=== PATIENT | female | born 1990 | race Caucasian/White ===

== ENCOUNTER 2017-04-25 14:08 | Inpatient (IN) | payer MEDICAID, SELFPAY ==
[2017-04-25 14:26] VITALS: PULSE 94; RESP 18; BMI 28.2
[2017-04-25 14:40] VITALS: BP 118/64; PULSE 94; RESP 16; TEMP 36.2; O2SAT 97
[2017-04-25 14:49] VITALS: BP 118/64; PULSE 94; RESP 16; TEMP 36.2
[2017-04-25] MEDS: Methocarbamol 750 MG Tablet PO (15:28)
[2017-04-25] MEDS: hydrOXYzine PAM 25 MG Capsule 50 MG PO (15:28)
[2017-04-25] MEDS: Buprenorphine HCl 2 MG TAB.SUBL SL ×2 (15:29→22:33)
[2017-04-25 15:40] LABS: Absolute Lymphocyte Count 3.01 X10^3/ul (0.83-4.51); Basophil# 0.01 X10^3/uL; Basophil% 0.1 % (0-1); Eosinophil# 0.18 X10^3/uL; Hematocrit 43.6 % (37-47); Hemoglobin 14.6 g/dl (12.0-15.0); Lymphocyte # 3.01 X10^3/ul (4.0); Lymphocyte % 34.2 % (19-41); Mean Corp Hgb Conc 33.5 g/gl (32-36); Mean Corpuscular Hgb 29.4 pg (27.0-32.0); Mean Corpuscular Volume 87.7 fL (81-99); Mean Platelet Vol. 9.1 fl (6.2-12.0); Monocyte# 0.61 X10^3/uL; Monocyte% 6.9 % (0-10); Neutrophil # 4.97 X10^3/uL (2.7-7.7); Neutrophil % 56.7 % (47-70); Platelet Count 239 K/mm3 (150-450); RBC Distribution Width CV 13.9 % (11.6-14.6); RBC Distribution Width SD 44.6 fl (35.1-43.9); Red Blood Count 4.97 M/mm3 (4.2-5.4); White Blood Count 8.8 K/mm3 (4.4-11.0)
[2017-04-25 15:43] LABS: POSITIVE COUNT NO; POSITIVE DIFFERENTIAL NO; POSITIVE MORPHOLOGY NO
--- NOTE | 2017-04-25 15:49 | PCM.HP.STD ---
<Anila Kimbrough - Last Filed: 04/25/17 16:04> Problem List (1) Polysubstance abuse Status: Resolved Comment: also uses suboxone and crack intermittently (2) Anxiety and depression Status: Chronic (3) Acute opioid withdrawal Status: Acute (4) Opioid dependence Status: Chronic (5) Tobacco dependence Status: Chronic (6) Asthma Status: Chronic (7) Recurrent UTI Status: Chronic History of Present Illness Date of Admission: 04/25/17 Chief Complaint: Opioid withdrawal The patient is a 26 year old F who presents through [facility] program for acute opioid withdrawal. She admits to using approximately 60 mg of Percocet daily via snorting. She has used Percocet intermittently for about 10 years. She last snorted Percocet last evening, 04/24/2017 around 5 PM and used 90 mg. She has been in detox multiple times, most recently in December 2016 at [facility] where she was referred through [facility]. She has a history of cocaine use intermittently but denies current use or other substance use. She denies alcohol use. She is a current pack per day smoker. Her other past medical history includes asthma, depression, anxiety, recurrent UTIs. She currently complains of dysuria and urinary frequency and suspect she has a UTI. She currently complains of nausea, thirst and dry mouth, restlessness, tremors. 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 Denies: Chills, Fever, Weight Change HEENT: Denies: Head Aches, Sinus Congestion, Sinus Drainage Cardiovascular: Denies: Chest Pain, Palpitations Respiratory: Denies: Cough, Shortness of breath at rest, Sputum production Gastrointestinal: Reports: Diarrhea, Nausea. Denies: Abdominal Pain, Vomiting Genitourinary: Denies: Dysuria Musculoskeletal: Reports: Joint Pain. Denies: Joint Tenderness Skin: Denies: Rash, Wounds Neurological: Denies: Numbness, Tingling, Focal weakness Psychiatric: Reports: Anxiety, Depression Hematologic/ Lymphatic: Denies: Easy Bruising, Easy Bleeding VTE Information - Inpt Only VTE Present on Admission: No VTE Mechan Device Prophylaxis: None VTE Pharm Prophylaxis ordered?: No Reason prophylaxis not ordered:: Treatment Not Indicated - Physical Exam General: Alert, Oriented x3, Cooperative, No apparent distress HEENT: Atraumatic, PERRLA, EOMI, Normocephalic Neck: Supple, No JVD, Negative Carotid Bruits Lungs: Clear to auscultation, Normal air movement Cardiovascular: Regular rate, No murmurs Abdomen: Bowel Sounds Present, Soft, Non Tender, Non-Distended Extremities: No clubbing, No cyanosis, No edema, Capillary Refill Less than 3 Seconds Skin: No rashes, No breakdown Musculoskeletal: No Tenderness to Palpation of Joints or Extremities Neurological: Cranial nerves II-XII grossly intact, Neuro grossly intact Psych/Mental Status: Normal Affect, Appropriate Vital Signs Temp Pulse Resp BP Pulse Ox 97.2 F L 94 16 118/64 97 04/25/17 14:49 04/25/17 14:49 04/25/17 14:49 04/25/17 14:49 04/25/17 14:40 Oxygen Delivery Method Room Air Weight: 79.379 kg Body Mass Index (BMI) 28.2 Laboratory Tests Past 24 Hrs 04/25/17 04/25/17 04/25/17 15:30 15:30 15:30 WBC 8.8 RBC 4.97 Hgb 14.6 Hct 43.6 MCV 87.7 MCH 29.4 MCHC 33.5 RDW 13.9 RDW Differential 44.6 H Plt Count 239 MPV 9.1 Immature Gran % (Auto) 0.100 Neut % (Auto) 56.7 Lymph % (Auto) 34.2 [place] % (Auto) 6.9 Eos % (Auto) 2.0 Baso % (Auto) 0.1 Absolute Neuts (auto) 5.0 Absolute Lymphs (auto) 3.01 Total Counted Not Reportable Sodium Pending Potassium Pending Chloride Pending Carbon Dioxide Pending Anion Gap Pending BUN Pending Creatinine Pending Est GFR (MDRD) Af Amer Pending Est GFR (MDRD) Non-Af Pending BUN/Creatinine Ratio Pending Glucose Pending Calcium Pending Lipase Pending Serum , Qual Ethyl Alcohol Pending 04/25/17 15:30 WBC RBC Hgb Hct MCV MCH MCHC RDW RDW Differential Plt Count MPV Immature Gran % (Auto) Neut % (Auto) Lymph % (Auto) [place] % (Auto) Eos % (Auto) Baso % (Auto) Absolute Neuts (auto) Absolute Lymphs (auto) Total Counted Sodium Potassium Chloride Carbon Dioxide Anion Gap BUN Creatinine Est GFR (MDRD) Af Amer Est GFR (MDRD) Non-Af BUN/Creatinine Ratio Glucose Calcium Lipase Serum , Qual Pending Ethyl Alcohol Assessment/Plan 1. Acute opioid withdrawal on chronic opioid dependence-history of multiple inpatient detox treatment. Medical stabilization per protocol. Patient currently has symptoms of nausea, thirst, diarrhea, restlessness, tremor. Zofran as needed for nausea. Urine drug screen pending. 2. Tobacco dependence-encourage smoking cessation. Requesting nicotine replacement patch. 3. History of recurrent UTIs-complaints of dysuria and urinary frequency. Send urine for UA and culture. 4. Anxiety/depression-not on home regimen. 5. Asthma-does not require inhaler. DVT prophylaxis-not indicated. This patient was seen by RIDDHI Demarco under the supervision of Dr. Hollis. <Jordon Hollis E - Last Filed: 04/25/17 20:31> History of Present Illness The patient is a 26 year old F [] Past Medical History Allergies No Known Allergies Allergy (Verified 12/27/16 15:01) - Physical Exam Vital Signs Temp Pulse Resp BP Pulse Ox 98.5 F 98 16 120/62 97 04/25/17 18:00 04/25/17 18:00 04/25/17 18:00 04/25/17 18:00 04/25/17 14:40 Oxygen Delivery Method Room Air Weight: 175 lb 0.012 oz Body Mass Index (BMI) 28.2 Intake and Output for Last 24 Hours 04/23/17 04/24/17 04/25/17 23:59 23:59 23:59 Intake Total 700 / 700 Balance 700 / 700 Laboratory Tests Past 24 Hrs 04/25/17 04/25/17 04/25/17 15:30 15:30 15:30 WBC 8.8 RBC 4.97 Hgb 14.6 Hct 43.6 MCV 87.7 MCH 29.4 MCHC 33.5 RDW 13.9 RDW Differential 44.6 H Plt Count 239 MPV 9.1 Immature Gran % (Auto) 0.100 Neut % (Auto) 56.7 Lymph % (Auto) 34.2 [place] % (Auto) 6.9 Eos % (Auto) 2.0 Baso % (Auto) 0.1 Absolute Neuts (auto) 5.0 Absolute Lymphs (auto) 3.01 Total Counted Not Reportable Sodium 140 Potassium 3.7 Chloride 106 Carbon Dioxide 29.0 Anion Gap 5 BUN 11 Creatinine 0.80 Estim Creat Clear Calc 100.63 Est GFR (MDRD) Af Amer 112 Est GFR (MDRD) Non-Af 93 BUN/Creatinine Ratio 13.8 Glucose 106 Calcium 8.2 L Lipase 106 Serum , Qual Ethyl Alcohol < 3.0 04/25/17 15:30 WBC RBC Hgb Hct MCV MCH MCHC RDW RDW Differential Plt Count MPV Immature Gran % (Auto) Neut % (Auto) Lymph % (Auto) Wil[place] % (Auto) Eos % (Auto) Baso % (Auto) Absolute Neuts (auto) Absolute Lymphs (auto) Total Counted Sodium Potassium Chloride Carbon Dioxide Anion Gap BUN Creatinine Estim Creat Clear Calc Est GFR (MDRD) Af Amer Est GFR (MDRD) Non-Af BUN/Creatinine Ratio Glucose Calcium Lipase Serum , Qual NEGATIVE Ethyl Alcohol Assessment/Plan Hospitalist note: I am seeing this patient in conjunction with Anila Kimbrough. I independently seen and examined the patient. History and physical and laboratory data reviewed and I agree with above treatment plan. Patient was admitted because of acute opioid withdrawal for medical stabilization. She has been using Percocet via snorting for the last 10 years. She complained of nausea, dry mouth as well as tremors and restlessness. She underwent detox program multiple times most recent was in December, at this hospital. At this time, she denied any concurrent use of other street drugs or substance abuse. She denied alcohol abuse or drinking. She is everyday smoker. - Physical Exam General: Alert, Oriented x3, Cooperative, No apparent distress. HEENT: Atraumatic, PERRLA, EOMI. Neck: Supple, No JVD, Negative Carotid Bruits, Trachea Midline, Thyroid Normal. Lungs: Clear to auscultation, Normal air movement, No rhonchi, No wheeze, No rales. Cardiovascular: Regular rate, Regular Rhythm, Normal S1, Normal S2, PMI Normal. Abdomen: Bowel Sounds Present, Soft, Non Tender, Non-Distended, No Hepato-splenomegaly. Extremities: No clubbing, No cyanosis, No edema Skin: No rashes, No breakdown Neurological: Neuro grossly intact Vital Signs are stable. Assessment and plan: #1 acute opioid withdrawal: Routine blood work reviewed, was unremarkable. test was negative. Lipase was negative. Blood alcohol level less than 3. Urine drug screen and urine analysis ordered. Plan: Initiate [facility] protocol with tapering course of Subutex, as needed Catapres, Bentyl, Vistaril, methocarbamol, Seroquel and Mirapex. #2 asthma: Stable, pulse ox is normal on room air. #3 anxiety/depression: She is not on any medication. #4 tobacco abuse: NicoDerm patch. #5 DVT prophylaxis: Low risk patient, not indicated. This note was generated with [email or web address] dictation software. It may contain incorrect words, spelling, and punctuation that were not noted in checking the note before signing. Code Visit Inpatient E&M: 56483 Init Hosp L2
--- NOTE | 2017-04-25 15:59 | HP.PCM_ITS ---
<Anila Kimbrough - Last Filed: 04/25/17 16:04> Problem List (1) Polysubstance abuse Status: Resolved Comment: also uses suboxone and crack intermittently (2) Anxiety and depression Status: Chronic (3) Acute opioid withdrawal Status: Acute (4) Opioid dependence Status: Chronic (5) Tobacco dependence Status: Chronic (6) Asthma Status: Chronic (7) Recurrent UTI Status: Chronic History of Present Illness Date of Admission: 04/25/17 Chief Complaint: Opioid withdrawal The patient is a 26 year old F who presents through [facility] program for acute opioid withdrawal. She admits to using approximately 60 mg of Percocet daily via snorting. She has used Percocet intermittently for about 10 years. She last snorted Percocet last evening, 04/24/2017 around 5 PM and used 90 mg. She has been in detox multiple times, most recently in December 2016 at [facility] where she was referred through [facility]. She has a history of cocaine use intermittently but denies current use or other substance use. She denies alcohol use. She is a current pack per day smoker. Her other past medical history includes asthma, depression, anxiety, recurrent UTIs. She currently complains of dysuria and urinary frequency and suspect she has a UTI. She currently complains of nausea, thirst and dry mouth, restlessness, tremors. 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 Denies: Chills, Fever, Weight Change HEENT: Denies: Head Aches, Sinus Congestion, Sinus Drainage Cardiovascular: Denies: Chest Pain, Palpitations Respiratory: Denies: Cough, Shortness of breath at rest, Sputum production Gastrointestinal: Reports: Diarrhea, Nausea. Denies: Abdominal Pain, Vomiting Genitourinary: Denies: Dysuria Musculoskeletal: Reports: Joint Pain. Denies: Joint Tenderness Skin: Denies: Rash, Wounds Neurological: Denies: Numbness, Tingling, Focal weakness Psychiatric: Reports: Anxiety, Depression Hematologic/ Lymphatic: Denies: Easy Bruising, Easy Bleeding VTE Information - Inpt Only VTE Present on Admission: No VTE Mechan Device Prophylaxis: None VTE Pharm Prophylaxis ordered?: No Reason prophylaxis not ordered:: Treatment Not Indicated - Physical Exam General: Alert, Oriented x3, Cooperative, No apparent distress HEENT: Atraumatic, PERRLA, EOMI, Normocephalic Neck: Supple, No JVD, Negative Carotid Bruits Lungs: Clear to auscultation, Normal air movement Cardiovascular: Regular rate, No murmurs Abdomen: Bowel Sounds Present, Soft, Non Tender, Non-Distended Extremities: No clubbing, No cyanosis, No edema, Capillary Refill Less than 3 Seconds Skin: No rashes, No breakdown Musculoskeletal: No Tenderness to Palpation of Joints or Extremities Neurological: Cranial nerves II-XII grossly intact, Neuro grossly intact Psych/Mental Status: Normal Affect, Appropriate Vital Signs Temp Pulse Resp BP Pulse Ox 97.2 F L 94 16 118/64 97 04/25/17 14:49 04/25/17 14:49 04/25/17 14:49 04/25/17 14:49 04/25/17 14:40 Oxygen Delivery Method Room Air Weight: 79.379 kg Body Mass Index (BMI) 28.2 Laboratory Tests Past 24 Hrs 04/25/17 04/25/17 04/25/17 15:30 15:30 15:30 WBC 8.8 RBC 4.97 Hgb 14.6 Hct 43.6 MCV 87.7 MCH 29.4 MCHC 33.5 RDW 13.9 RDW Differential 44.6 H Plt Count 239 MPV 9.1 Immature Gran % (Auto) 0.100 Neut % (Auto) 56.7 Lymph % (Auto) 34.2 [place] % (Auto) 6.9 Eos % (Auto) 2.0 Baso % (Auto) 0.1 Absolute Neuts (auto) 5.0 Absolute Lymphs (auto) 3.01 Total Counted Not Reportable Sodium Pending Potassium Pending Chloride Pending Carbon Dioxide Pending Anion Gap Pending BUN Pending Creatinine Pending Est GFR (MDRD) Af Amer Pending Est GFR (MDRD) Non-Af Pending BUN/Creatinine Ratio Pending Glucose Pending Calcium Pending Lipase Pending Serum , Qual Ethyl Alcohol Pending 04/25/17 15:30 WBC RBC Hgb Hct MCV MCH MCHC RDW RDW Differential Plt Count MPV Immature Gran % (Auto) Neut % (Auto) Lymph % (Auto) [place] % (Auto) Eos % (Auto) Baso % (Auto) Absolute Neuts (auto) Absolute Lymphs (auto) Total Counted Sodium Potassium Chloride Carbon Dioxide Anion Gap BUN Creatinine Est GFR (MDRD) Af Amer Est GFR (MDRD) Non-Af BUN/Creatinine Ratio Glucose Calcium Lipase Serum , Qual Pending Ethyl Alcohol Assessment/Plan 1. Acute opioid withdrawal on chronic opioid dependence-history of multiple inpatient detox treatment. Medical stabilization per protocol. Patient currently has symptoms of nausea, thirst, diarrhea, restlessness, tremor. Zofran as needed for nausea. Urine drug screen pending. 2. Tobacco dependence-encourage smoking cessation. Requesting nicotine replacement patch. 3. History of recurrent UTIs-complaints of dysuria and urinary frequency. Send urine for UA and culture. 4. Anxiety/depression-not on home regimen. 5. Asthma-does not require inhaler. DVT prophylaxis-not indicated. This patient was seen by RIDDHI Demarco under the supervision of Dr. Hollis. <Jordon Hollis E - Last Filed: 04/25/17 20:31> History of Present Illness The patient is a 26 year old F [] Past Medical History Allergies No Known Allergies Allergy (Verified 12/27/16 15:01) - Physical Exam Vital Signs Temp Pulse Resp BP Pulse Ox 98.5 F 98 16 120/62 97 04/25/17 18:00 04/25/17 18:00 04/25/17 18:00 04/25/17 18:00 04/25/17 14:40 Oxygen Delivery Method Room Air Weight: 175 lb 0.012 oz Body Mass Index (BMI) 28.2 Intake and Output for Last 24 Hours 04/23/17 04/24/17 04/25/17 23:59 23:59 23:59 Intake Total 700 / 700 Balance 700 / 700 Laboratory Tests Past 24 Hrs 04/25/17 04/25/17 04/25/17 15:30 15:30 15:30 WBC 8.8 RBC 4.97 Hgb 14.6 Hct 43.6 MCV 87.7 MCH 29.4 MCHC 33.5 RDW 13.9 RDW Differential 44.6 H Plt Count 239 MPV 9.1 Immature Gran % (Auto) 0.100 Neut % (Auto) 56.7 Lymph % (Auto) 34.2 [place] % (Auto) 6.9 Eos % (Auto) 2.0 Baso % (Auto) 0.1 Absolute Neuts (auto) 5.0 Absolute Lymphs (auto) 3.01 Total Counted Not Reportable Sodium 140 Potassium 3.7 Chloride 106 Carbon Dioxide 29.0 Anion Gap 5 BUN 11 Creatinine 0.80 Estim Creat Clear Calc 100.63 Est GFR (MDRD) Af Amer 112 Est GFR (MDRD) Non-Af 93 BUN/Creatinine Ratio 13.8 Glucose 106 Calcium 8.2 L Lipase 106 Serum , Qual Ethyl Alcohol < 3.0 04/25/17 15:30 WBC RBC Hgb Hct MCV MCH MCHC RDW RDW Differential Plt Count MPV Immature Gran % (Auto) Neut % (Auto) Lymph % (Auto) [place] % (Auto) Eos % (Auto) Baso % (Auto) Absolute Neuts (auto) Absolute Lymphs (auto) Total Counted Sodium Potassium Chloride Carbon Dioxide Anion Gap BUN Creatinine Estim Creat Clear Calc Est GFR (MDRD) Af Amer Est GFR (MDRD) Non-Af BUN/Creatinine Ratio Glucose Calcium Lipase Serum , Qual NEGATIVE Ethyl Alcohol Assessment/Plan Hospitalist note: I am seeing this patient in conjunction with Anila Kimbrough. I independently seen and examined the patient. History and physical and laboratory data reviewed and I agree with above treatment plan. Patient was admitted because of acute opioid withdrawal for medical stabilization. She has been using Percocet via snorting for the last 10 years. She complained of nausea, dry mouth as well as tremors and restlessness. She underwent detox program multiple times most recent was in December, at this hospital. At this time , she denied any concurrent use of other street drugs or substance abuse. She denied alcohol abuse or drinking. She is everyday smoker. - Physical Exam General: Alert, Oriented x3, Cooperative, No apparent distress. HEENT: Atraumatic, PERRLA, EOMI. Neck: Supple, No JVD, Negative Carotid Bruits, Trachea Midline, Thyroid Normal. Lungs: Clear to auscultation, Normal air movement, No rhonchi, No wheeze, No rales. Cardiovascular: Regular rate, Regular Rhythm, Normal S1, Normal S2, PMI Normal. Abdomen: Bowel Sounds Present, Soft, Non Tender, Non-Distended, No Hepato- splenomegaly. Extremities: No clubbing, No cyanosis, No edema Skin: No rashes, No breakdown Neurological: Neuro grossly intact Vital Signs are stable. Assessment and plan: #1 acute opioid withdrawal: Routine blood work reviewed, was unremarkable. test was negative. Lipase was negative. Blood alcohol level less than 3. Urine drug screen and urine analysis ordered. Plan: Initiate [facility] protocol with tapering course of Subutex, as needed Catapres, Bentyl, Vistaril, methocarbamol, Seroquel and Mirapex. #2 asthma: Stable, pulse ox is normal on room air. #3 anxiety/depression: She is not on any medication. #4 tobacco abuse: NicoDerm patch. #5 DVT prophylaxis: Low risk patient, not indicated. This note was generated with [employer] dictation software. It may contain incorrect words, spelling, and punctuation that were not noted in checking the note before signing. Code Visit Inpatient E&M: 78607 Init Hosp L2
[2017-04-25 16:08] LABS: Anion Gap 5 (5-15); BUN 11 mg/dL (7-18); BUN/Creat Ratio 13.8 RATIO (10-20); Calcium,Total 8.2 mg/dL (8.5-10.1); Chloride 106 mmol/L (98-107); EST Glomerular Filtration Rate 93 mL/min (>60); Est Glom Filt Rate - Afr Amer 112 mL/min (>60); Estimated Creatinine Clearance 100.63 ml/min; Glucose 106 mg/dL (74-106); Lipase 106 U/L (73-393); Potassium 3.7 mmol/L (3.5-5.1); Sodium Level 140 mmol/L (136-145)
[2017-04-25 16:19] LABS: Pregnancy, Serum, hCG Quali. NEGATIVE Negative (0-9 Nonpreg)
--- NOTE | 2017-04-25 16:22 | CHAPLAIN ---
brief hello to patient who is returning for [facility] program; pt admits that she relapsed but 'really want to do better; and I'm going to live with my mother so someone will stop me; pt says that she just needs a prayer right now
[2017-04-25 16:24] LABS: Alcohol, Blood (Medical)-Serum < 3.0 mg/dL
[2017-04-25] MEDS: Acetaminophen 500 MG Tablet PO ×2 (16:38→22:33)
[2017-04-25 18:00] VITALS: BP 120/62; PULSE 98; RESP 16; TEMP 36.9
[2017-04-25 22:24] VITALS: BP 117/81; PULSE 102; RESP 14; TEMP 36.8
[2017-04-25] MEDS: traZODone 50 MG Tablet PO (22:33)
[2017-04-25] MEDS: QUEtiapine 25 MG Tablet PO (22:33)
[2017-04-25] MEDS: Ondansetron ODT 4 MG Tablet PO (22:34)
[2017-04-26 00:06] LABS: Mucous, Urine 0 SEEN /hpf (<or=2+); Red Blood Cells-Urine 0 SEEN /hpf (0-5)
[2017-04-26 00:16] LABS: Color, Urine Yellow (Yellow); Glucose, Dipstick Normal (Normal); Ketone-Dipstick Negative (Negative); Leukocyte Esterase-Dipstick 100 /ul (Negative); Nitrite-Dipstick Positive (Negative); Occult Blood-Urine Negative /ul (Negative); Protein-Dipstick 15 mg/dl (Negative); Specific Gravity, Urine 1.025 (1.002-1.030); Urine Bilirubin Dipstick Negative (Negative); Urine Clarity Clear (Clear); Urine Urobilinogen Normal (Normal)
[2017-04-26 00:26] LABS: Bacteria 1+ /hpf (None Seen); Squamous Epithelial Cells - UA 0-5 SEEN /hpf (5-10); White Blood Cells 10-25 SEEN /hpf (0-5)
[2017-04-26 00:32] LABS: Amphetamine Urine VISTA POSITIVE (<1000 ng/mL); Barbiturate Urine VISTA NEGATIVE (< 200 ng/mL); Benzodiazepine Urine VISTA NEGATIVE (< 200 ng/mL); Cocaine Urine VISTA NEGATIVE (< 300 ng/mL); Ecstacy Urine VISTA NEGATIVE (< 500 ng/mL); Methadone Urine VISTA NEGATIVE (< 300 ng/mL); PCP Urine VISTA NEGATIVE (< 25 ng/mL); THC Urine VISTA NEGATIVE (< 50 ng/mL); Vista UDS pH Range 5
[2017-04-26] MEDS: hydrOXYzine PAM 25 MG Capsule 50 MG PO ×4 (01:39→22:10)
[2017-04-26 01:40] VITALS: BP 115/72; PULSE 111; RESP 14; TEMP 36.4
[2017-04-26 06:14] VITALS: BP 103/60; PULSE 100; RESP 14; TEMP 37
[2017-04-26] MEDS: Buprenorphine HCl 2 MG TAB.SUBL SL ×3 (06:16→22:10)
[2017-04-26 09:02] VITALS: BP 92/54; PULSE 88; RESP 18; TEMP 36.8
--- NOTE | 2017-04-26 09:03 | PCM.PROGNOTE ---
<Anila Kimbrough - Last Filed: 04/26/17 09:16> Subjective: Patient seen and examined. Complains of sore throat and asking for cold medication. Told patient I would add Cepacol lozenges and she has Tylenol available. She states this will not work for her. She denies other upper respiratory symptoms. Complains of dry mouth, nausea, tremors. Tolerating oral intake without difficulty. Complains of dysuria and urinary frequency. - Physical Exam General: Alert, Oriented x3, No apparent distress HEENT: Atraumatic, PERRLA, EOMI, Normocephalic Oral: Dry Mucosa Neck: Supple, No JVD, Negative Carotid Bruits Lungs: Clear to auscultation, Normal air movement Cardiovascular: Regular rate, Regular Rhythm, Normal S1, Normal S2, No murmurs Abdomen: Bowel Sounds Present, Soft, Non Tender, Non-Distended Extremities: No clubbing, No cyanosis, No edema, Capillary Refill Less than 3 Seconds Skin: No rashes, No breakdown Musculoskeletal: No Tenderness to Palpation of Joints or Extremities Neurological: Cranial nerves II-XII grossly intact, Neuro grossly intact Psych/Mental Status: Normal Affect, Appropriate Vital Signs Temp Pulse Resp BP Pulse Ox 98.2 F 88 18 92/54 L 97 04/26/17 09:02 04/26/17 09:02 04/26/17 09:02 04/26/17 09:02 04/25/17 14:40 Oxygen Delivery Method Room Air Weight: 79.379 kg Body Mass Index (BMI) 28.2 Intake and Output for Last 24 Hours 04/24/17 04/25/17 04/26/17 23:59 23:59 23:59 Intake Total 1500 / 1500 800 / 800 Balance 1500 / 1500 800 / 800 Laboratory Tests Past 24 Hrs 04/25/17 04/25/17 04/25/17 15:30 15:30 15:30 WBC 8.8 RBC 4.97 Hgb 14.6 Hct 43.6 MCV 87.7 MCH 29.4 MCHC 33.5 RDW 13.9 RDW Differential 44.6 H Plt Count 239 MPV 9.1 Immature Gran % (Auto) 0.100 Neut % (Auto) 56.7 Lymph % (Auto) 34.2 [place] % (Auto) 6.9 Eos % (Auto) 2.0 Baso % (Auto) 0.1 Absolute Neuts (auto) 5.0 Absolute Lymphs (auto) 3.01 Total Counted Not Reportable Sodium 140 Potassium 3.7 Chloride 106 Carbon Dioxide 29.0 Anion Gap 5 BUN 11 Creatinine 0.80 Estim Creat Clear Calc 100.63 Est GFR (MDRD) Af Amer 112 Est GFR (MDRD) Non-Af 93 BUN/Creatinine Ratio 13.8 Glucose 106 Calcium 8.2 L Lipase 106 Serum , Qual Urine Color Urine Clarity Urine pH Ur Specific [place] Urine Protein Urine Glucose (UA) Urine Ketones Urine Occult Blood Urine Nitrite Urine Bilirubin Urine Urobilinogen Ur Leukocyte Esterase Urine RBC Urine WBC Ur Squamous Epith Cells Urine Bacteria Urine Mucus Urine Opiates Screen Urine Methadone Screen Ur Barbiturates Screen Ur Phencyclidine Scrn Ur Amphetamines Screen U Methamphetamin-MDMA U Benzodiazepines Scrn Urine Cocaine Screen U Cannabinoids Screen Ur Drug Screen Comment Ethyl Alcohol < 3.0 04/25/17 04/25/17 04/25/17 15:30 23:50 23:50 WBC RBC Hgb Hct MCV MCH MCHC RDW RDW Differential Plt Count MPV Immature Gran % (Auto) Neut % (Auto) Lymph % (Auto) [place] % (Auto) Eos % (Auto) Baso % (Auto) Absolute Neuts (auto) Absolute Lymphs (auto) Total Counted Sodium Potassium Chloride Carbon Dioxide Anion Gap BUN Creatinine Estim Creat Clear Calc Est GFR (MDRD) Af Amer Est GFR (MDRD) Non-Af BUN/Creatinine Ratio Glucose Calcium Lipase Serum , Qual NEGATIVE Urine Color Yellow Urine Clarity Clear Urine pH 5.0 Ur Specific [place] 1.025 Urine Protein 15 H Urine Glucose (UA) Normal Urine Ketones Negative Urine Occult Blood Negative Urine Nitrite Positive H Urine Bilirubin Negative Urine Urobilinogen Normal Ur Leukocyte Esterase 100 H Urine RBC 0 SEEN Urine WBC 10-25 SEEN Ur Squamous Epith Cells 0-5 SEEN Urine Bacteria 1+ Urine Mucus 0 SEEN Urine Opiates Screen NEGATIVE Urine Methadone Screen NEGATIVE Ur Barbiturates Screen NEGATIVE Ur Phencyclidine Scrn NEGATIVE Ur Amphetamines Screen POSITIVE H U Methamphetamin-MDMA NEGATIVE U Benzodiazepines Scrn NEGATIVE Urine Cocaine Screen NEGATIVE U Cannabinoids Screen NEGATIVE Ur Drug Screen Comment Ethyl Alcohol Assessment/Plan Patient is a 26-year-old female admitted 04/25/2017 due to opioid withdrawal. She has been using Percocet 60 mg daily via snorting. She has been through detox programs multiple times in the past, most recently in December 2016 at [facility]. She has a past medical history of asthma, depression, anxiety, recurrent UTIs. 1. Acute opioid withdrawal on chronic opioid dependence-history of multiple inpatient detox treatment. Medical stabilization per protocol. Patient complaining of nausea, sore throat, dry mouth, tremors. Zofran as needed for nausea. Patient has Cepacol lozenges and Tylenol for sore throat and encouraged fluids. Drug screen positive for amphetamines. 2. Tobacco dependence-encourage smoking cessation. Nicotine replacement patch. 3. Acute cystitis -history of recurrent UTIs-complains of dysuria and urinary frequency. UA positive for leukocytes and nitrites. Culture sent. Patient was started on cephalexin 500 mg p.o. every 8hr. 4. Anxiety/depression-not on home regimen. 5. Asthma-does not require inhaler. DVT prophylaxis-not indicated. This patient was seen by RIDDHI Demarco under the supervision of Dr. Jackson. <Cydney Jackson - Last Filed: 04/28/17 20:41> - Physical Exam Vital Signs Temp Pulse Resp BP Pulse Ox 96.0 F L 86 16 107/55 L 98 04/27/17 09:14 04/27/17 09:14 04/27/17 09:14 04/27/17 09:14 04/27/17 09:00 Oxygen Delivery Method Room Air Weight: 175 lb 0.012 oz Body Mass Index (BMI) 28.2 Intake and Output for Last 24 Hours 04/26/17 04/27/17 04/28/17 23:59 23:59 23:59 Intake Total 800 / 800 Balance 800 / 800 Microbiology Past 72 Hours 04/25/17 23:50 Urine Culture - Final Urine, Clean Catch Presumptive E. coli Code Visit Inpatient E&M: 64589 Subs Hosp L2
[2017-04-26] MEDS: Multivitamins,Ther W-Minerals Tablet 1 TABLET PO (09:09)
[2017-04-26] MEDS: Acetaminophen 500 MG Tablet PO ×3 (09:12→22:10)
[2017-04-26] MEDS: BENZOCAINE/MENTHOL 1 LOZENGE 2 LOZENGE MUCOUS MEM (09:12)
[2017-04-26] MEDS: Methocarbamol 750 MG Tablet PO ×3 (09:12→22:10)
[2017-04-26 13:17] VITALS: BP 106/53; PULSE 95; RESP 18; TEMP 36.6
[2017-04-26] MEDS: QUEtiapine 25 MG Tablet PO ×2 (13:22→21:18)
[2017-04-26] MEDS: Cephalexin 500 MG Capsule PO ×2 (13:22→21:19)
--- NOTE | 2017-04-26 19:45 | NURSING ---
Patient up to main nursing desk, very agitated, wants to go out to car to get a phone fountain vending mechanic. This nurse offered to find a fountain vending mechanic or call and ask for a friend/family to bring in fountain vending mechanic. Patient stated she had no friends or family and huffed away to room. This nurse followed and patient told nurse she really just wanted a cigarette. Patient does have 14mg patch on. This nurse offered to replace patch but patient wants a higher dosing patch. Charge nurse notified for when MD calls.
[2017-04-26 21:15] VITALS: BP 120/76; PULSE 96; RESP 14; TEMP 36.4
[2017-04-26] MEDS: traZODone 50 MG Tablet PO (21:18)
[2017-04-26] MEDS: Pramipexole Di-HCl 0.25 MG Tablet PO (21:19)
--- NOTE | 2017-04-26 22:45 | NURSING ---
Patient in hallway wearing only tshirt and blanket around waist with no pants. Yelling at staff stating she is short of breath and cannot breath. She is demanding that something be done now. Patient redirected to room, attempted to converse with patient but patient continues to yell. De-escalation attempts made with minimal success. Patient took off nicotine patch at this time, stating it made her arm feel funny and that she just wants to smoke, the facility at [place] lets you smoke Offered to apply new patch but patient refused. Also offered to get an order for nicotine gum, but patient refused. When explained that nasal congestion can be a symptom of withdrawal for people who snort drugs patient became upset stating she has been through withdrawal a billion times and that isn't true Patient pacing in room and on phone. Patient is also upset with TEACHER OF THE VISUALLY IMPAIRED Anila Kimbrough for not ordering cold medicine today. Impressed to patient importance of staying in room when yelling so not to disturb other patients. Patient verbalized okay. Patient threatening to leave AMA at midnight if nothing has been given to her. Explained to patient the consequences of AMA and patient understands. Told patient Silvia Charge would be updated on situation. Will text MD an update for situation and possible orders.
[2017-04-27] MEDS: Fluticasone 0.05% 1 SPRAY NASAL.SRY NASAL ×2 (00:02→09:06)
[2017-04-27] MEDS: Buprenorphine HCl 2 MG TAB.SUBL SL (06:35)
[2017-04-27] MEDS: Cephalexin 500 MG Capsule PO ×2 (06:35→13:22)
[2017-04-27 06:37] VITALS: BP 105/58; PULSE 85; RESP 14; TEMP 36.9
--- NOTE | 2017-04-27 08:46 | PCM.PROGNOTE ---
Subjective: Patient seen and examined. Flat affect, does not make eye contact. States her sore throat has improved. Denies nausea, vomiting, diarrhea. Denies other withdrawal symptoms currently. Urinary symptoms improved. - Physical Exam General: Alert, Oriented x3, Cooperative HEENT: Atraumatic, PERRLA, EOMI, Normocephalic Neck: Supple, No JVD, Negative Carotid Bruits Lungs: Clear to auscultation, Normal air movement Cardiovascular: Regular rate, Regular Rhythm, Normal S1, Normal S2, No murmurs Abdomen: Bowel Sounds Present, Soft, Non Tender, Non-Distended Extremities: No clubbing, No cyanosis, No edema, Capillary Refill Less than 3 Seconds Skin: No rashes, No breakdown Musculoskeletal: No Tenderness to Palpation of Joints or Extremities Neurological: Cranial nerves II-XII grossly intact, Neuro grossly intact Psych/Mental Status: Normal Affect, Appropriate Vital Signs Temp Pulse Resp BP Pulse Ox 98.4 F 85 14 105/58 L 97 04/27/17 06:37 04/27/17 06:37 04/27/17 06:37 04/27/17 06:37 04/25/17 14:40 Oxygen Delivery Method Room Air Weight: 79.379 kg Body Mass Index (BMI) 28.2 Intake and Output for Last 24 Hours 04/25/17 04/26/17 04/27/17 23:59 23:59 23:59 Intake Total 1500 / 1500 800 / 800 Balance 1500 / 1500 800 / 800 Medical Necessity - Tobacco Use Smoking Status: Current every day smoker Assessment/Plan Patient is a 26-year-old female admitted 04/25/2017 due to opioid withdrawal. She has been using Percocet 60 mg daily via snorting. She has been through detox programs multiple times in the past, most recently in December 2016 at [facility]. She has a past medical history of asthma, depression, anxiety, recurrent UTIs. 1. Acute opioid withdrawal on chronic opioid dependence-history of multiple inpatient detox treatment. Medical stabilization per protocol. Drug screen positive for amphetamines. Withdrawal symptoms improved. Patient is stable, day #2 of [facility] protocol detox. 2. Tobacco dependence-encourage smoking cessation. Nicotine replacement patch. 3. Acute cystitis -history of recurrent UTIs-complains of dysuria and urinary frequency. UA positive for leukocytes and nitrites. Culture pending. Continue cephalexin 500 mg p.o. every 8hr. 4. Anxiety/depression-not on home regimen. 5. Asthma-does not require inhaler. DVT prophylaxis-not indicated. This patient was seen by RIDDHI Demarco under the supervision of Dr. Jackson.
--- NOTE | 2017-04-27 08:55 | PN_ITS ---
Subjective: Patient seen and examined. Flat affect, does not make eye contact. States her sore throat has improved. Denies nausea, vomiting, diarrhea. Denies other withdrawal symptoms currently. Urinary symptoms improved. - Physical Exam General: Alert, Oriented x3, Cooperative HEENT: Atraumatic, PERRLA, EOMI, Normocephalic Neck: Supple, No JVD, Negative Carotid Bruits Lungs: Clear to auscultation, Normal air movement Cardiovascular: Regular rate, Regular Rhythm, Normal S1, Normal S2, No murmurs Abdomen: Bowel Sounds Present, Soft, Non Tender, Non-Distended Extremities: No clubbing, No cyanosis, No edema, Capillary Refill Less than 3 Seconds Skin: No rashes, No breakdown Musculoskeletal: No Tenderness to Palpation of Joints or Extremities Neurological: Cranial nerves II-XII grossly intact, Neuro grossly intact Psych/Mental Status: Normal Affect, Appropriate Vital Signs Temp Pulse Resp BP Pulse Ox 98.4 F 85 14 105/58 L 97 04/27/17 06:37 04/27/17 06:37 04/27/17 06:37 04/27/17 06:37 04/25/17 14:40 Oxygen Delivery Method Room Air Weight: 79.379 kg Body Mass Index (BMI) 28.2 Intake and Output for Last 24 Hours 04/25/17 04/26/17 04/27/17 23:59 23:59 23:59 Intake Total 1500 / 1500 800 / 800 Balance 1500 / 1500 800 / 800 Medical Necessity - Tobacco Use Smoking Status: Current every day smoker Assessment/Plan Patient is a 26-year-old female admitted 04/25/2017 due to opioid withdrawal. She has been using Percocet 60 mg daily via snorting. She has been through detox programs multiple times in the past, most recently in December 2016 at [facility]. She has a past medical history of asthma, depression, anxiety, recurrent UTIs. 1. Acute opioid withdrawal on chronic opioid dependence-history of multiple inpatient detox treatment. Medical stabilization per protocol. Drug screen positive for amphetamines. Withdrawal symptoms improved. Patient is stable, day #2 of [facility] protocol detox. 2. Tobacco dependence-encourage smoking cessation. Nicotine replacement patch. 3. Acute cystitis -history of recurrent UTIs-complains of dysuria and urinary frequency. UA positive for leukocytes and nitrites. Culture pending. Continue cephalexin 500 mg p.o. every 8hr. 4. Anxiety/depression-not on home regimen. 5. Asthma-does not require inhaler. DVT prophylaxis-not indicated. This patient was seen by RIDDHI Demarco under the supervision of Dr. Jackson.
[2017-04-27 09:00] VITALS: BP 107/55; PULSE 86; RESP 16; TEMP 35.6; O2SAT 98
[2017-04-27] MEDS: Acetaminophen 500 MG Tablet PO (09:09)
[2017-04-27] MEDS: QUEtiapine 25 MG Tablet PO (09:09)
[2017-04-27] MEDS: BENZOCAINE/MENTHOL 1 LOZENGE 2 LOZENGE MUCOUS MEM (09:10)
[2017-04-27] MEDS: Multivitamins,Ther W-Minerals Tablet 1 TABLET PO (09:11)
[2017-04-27 09:14] VITALS: BP 107/55; PULSE 86; RESP 16; TEMP 35.6
--- NOTE | 2017-04-27 13:51 | NURSING ---
pt left AMA. cell phone cleaner wall and white t-shirt were left in the room. message left on pt cell phone about belongings and they were put in belonging bag and left at nurses station.
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
== END 2017-04-27 13:51 | disposition left against medical advice (07) | DRG 433 ==
PROVIDERS: Nurse Practitioner Family; Admitting Provider Hospitalist; Visit Provider Internal Medicine
DX: F11.23 Opioid dependence with withdrawal (principal); N30.00 Acute cystitis without hematuria; F17.210 Nicotine dependence, cigarettes, uncomplicated; J45.909 Unspecified asthma, uncomplicated; Z87.440 Personal history of urinary (tract) infections; B96.20 Unspecified Escherichia coli [E. coli] as the cause of diseases classified elsewhere; F32.9 Major depressive disorder, single episode, unspecified; F41.9 Anxiety disorder, unspecified
CPT/HCPCS: 80048; 80307; 80320; 81001; 83690; 84703; 85025; 87086; 87088; 87186; 97802; G0480

== ENCOUNTER 2024-03-17 20:51 | Observation (INO) | payer MEDICAID, SELFPAY ==
[2024-03-17 20:53] VITALS: BP 135/65; PULSE 99; RESP 16; TEMP 35.7; O2SAT 100; BMI 22.6
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
--- NOTE | 2024-03-17 22:28 | PCM.HP.STD ---
HPI - General General Date of Admission: 03/17/24 Date of Service: 03/17/24 Chief Complaint: Opiate/BZD withdrawal HPI Narrative The patient is a 33-year-old female with past medical history anxiety and depression, tobacco use, asthma, recurrent UTIs, recent history of surgical intervention in 2023 with abdominoplasty and breast augmentation on narcotic therapy as result with eventual abuse with recent increased anxiety secondary to traumatic events resulting in polysubstance abuse with both benzodiazepine and opiate abuse who presents to the [facility] ED on 03/17/24 with onset of acute withdrawal with last intake of benzodiazepines and opiates over the last nearly 36 to 48 hours with interest in complete clean status with associated nausea, abdominal cramping, significant tactile disturbances, restlessness prompting ED evaluation. Patient denies any IV drug abuse history. She notes normally taking at least 60 to 90 mg of oxycodone, clonazepam and Xanax. Per patient reports she recently had potentially a cousin unfortunately with a very traumatic noted to be Decapitated in the [facility] potentially. She reportedly was living with this individual and has been more stressed and anxious not wanting to return to the apartment. Workup in the ED included T96.2, heart rate 99, BP 135/65, respiratory rate 16, under percent on room air, CBC pending upon requested evaluation of patient, CMP not marked appearing, serum testing negative, UDS with positive benzos, cocaine, cannabis, ethyl alcohol less than 3. [facility] Medical History Former cigarette smoker Vaping nicotine dependence, tobacco product Anxiety and depression Tobacco dependence Asthma Substance abuse Home Medications ?Medication ?Instructions ?Recorded ?Last Taken ?Type clonazepam 1 mg tablet 1 mg PO TID PRN PRN anxiety 03/17/24 Unknown History Allergy/AdvReac Type Severity Reaction Status Date / Time ketorolac (From Toradol) Allergy Mild htn Verified 03/17/24 20:53 Family History (Updated 03/17/24 @ 23:[address] Nyasia Jerome MD) Father Polysubstance abuse Anxiety and depression Mother Alcohol abuse COPD (chronic obstructive pulmonary disease) Asthma Surgical History S/P breast augmentation History of abdominoplasty Social History (Updated 03/17/24 @ 23:[address] Nyasia Jerome MD) household members: none Smoking Status: Former smoker Electronic Cigarette Use: with nicotine alcohol intake: current alcohol intake frequency: holidays/special occasions only substance use type: other details: Rx opiate/BZD abuse, also purchased. ROS ROS Narrative Admission Review of Systems: CONSTITUTIONAL: No weight loss, fever, chills, + weakness or fatigue. HEENT: Eyes: No visual loss, blurred vision, double vision or yellow sclerae. Ears, Nose, Throat: No hearing loss, sneezing, congestion, runny nose or sore throat. SKIN: No rash or itching, lesions, wounds. CARDIOVASCULAR: No chest pain, chest pressure or chest discomfort, palpitations, edema, orthopnea, syncopal events. RESPIRATORY: No shortness of breath, cough or sputum, wheezing, hemoptysis. GASTROINTESTINAL: + anorexia, nausea without vomiting, abdominal cramping. No diarrhea, melena, BRBPR. GENITOURINARY: No dysuria, frequency, urgency or retention. NEUROLOGICAL: + Restlessness, tactile disturbances. No headache, dizziness, syncope, paralysis, ataxia, numbness or tingling in the extremities, focal weakness, change in bowel or bladder control, seizure. MUSCULOSKELETAL: + muscle, back pain, joint pain or stiffness. HEMATOLOGIC: No anemia, bleeding or bruising. LYMPHATICS: No enlarged nodes. No history of splenectomy. PSYCHIATRIC: + History anxiety and depression. ENDOCRINOLOGIC: No reports of sweating, cold or heat intolerance. No polyuria or polydipsia. ALLERGIES: No history of asthma, hives, eczema or rhinitis. Vital Signs Vital Signs Vital Signs: 03/17/24 20:53 Temperature 96.2 F L Temperature Source Temporal Pulse Rate 99 Respiratory Rate 16 Blood Pressure 135/65 H Blood Pressure Mean 88 Pulse Ox 100 Oxygen Delivery Method Room Air Weight Weight: 140 lb Body Mass Index (BMI) 22.6 Physical Exam Narrative Physical Examination: General: Awake, alert, oriented x 3 and cooperative, laying in the ED bed, fatigued, restless. Skin: Normal color, normal turgor, no icterus, no cyanosis except occasional stage ecchymoses, abrasion, several tattoos. HEENT: AT/NC, EOMI, PERRLA, dry MM, no carotid bruits or JVD noted. Lungs: Mildly diminished, greater bases, appropriate effort, no rales, ronchi or wheezing. Heart: Mildly tachycardic with regular rhythm; no gallop, rub audible. Abdomen: Soft, mild generalized discomfort with no rebound or guarding, hyperactive BS, no evidence of any distention, no HSM. Extremities: No cyanosis, clubbing, or edema. Neurological: Patient awake, alert, oriented as noted, cognitive function intact; pupils equally reactive to light and accommodation, cranial nerves gross normal, moving all 4 extremities, no focal deficits, restless, reporting tactile disturbances, strength moderately global decrease secondary to withdrawal symptoms Psychiatric: Affect appears restless, notes recent increase stressful events including the of a family member with underlying history of anxiety and depression. Results Lab / Micro Data 03/17/24 22:15 Labs: Laboratory Results - last 24 hr 03/17/24 22:00: Ur Drug Screen Comment Assessment & Plan Assessment/Plan (1) Acute opioid withdrawal: PLAN: Plan The patient is a 33-year-old female with past medical history anxiety and depression, tobacco use, asthma, recurrent UTIs, recent history of surgical intervention in 2023 with abdominoplasty and breast augmentation on narcotic therapy as result with eventual abuse with recent increased anxiety secondary to traumatic events resulting in polysubstance abuse with both benzodiazepine and opiate abuse who presents to the [facility] ED on 03/17/24 with onset of acute withdrawal. #1. Acute benzodiazepine withdrawal: Will admit to medical surgical floor, routine labs obtained in the ED. Given interest in clean status, will initiate and continue on protocol with taper course of Phenobarbital, as needed gabapentin, Catapres, Bentyl, Vistaril, IV fluids, IV antiemetics, Tylenol as needed for pain. Will consult Case management for assistance for transition to next level of rehabilitation care. #2. Acute Opiate Withdrawal: Given patient concurrent usage of opiate abuse, will additionally initiate and continue on protocol with tapering course of Subutex, as needed tylenol, ibuprofen, bowel regimen, gabapentin, Bentyl, Vistaril, methocarbamol, clonidine, PRN nightly trazodone for insomnia, IV fluids, IV antiemetics. Once patient clinically improved and completion of taper nearing will plan consultation with case management for transition to next level of rehabilitation care. #3. Polysubstance Abuse, Chronic: Although patient denies any IV drug abuse to be cautious will obtain syphilis, HIV and hepatitis panel as often poor decisions are made under the influence. #4. Tobacco use: Encourage tobacco cessation, RT consulted for education, NR ordered. #5. Anxiety and depression: Clarifying medications per current list only notes clonazepam with which patient has been abusing and attempting to be treated for as noted above, would benefit strongly from outpatient counseling appropriate medications under the direction. Case management consulted as well as 180. #6. Chronic asthma: Per current list not on any chronic inhalers, will have as needed albuterol, encouraged tobacco cessation. #7. DVT Prophylaxis: Low risk, encourage ambulation. Charges/Coding Visit Charges Inpatient E&M: 78401 Init Hosp L3
--- NOTE | 2024-03-17 22:34 | EDS_ITS ---
HPI History of Present Illness Chief Complaint: Substance Abuse Detail of Chief Complaint: Drug addiction to benzodiazepine and opiates Informant: patient Onset/Context/Timing Onset: Month(s) Context: Sudden Onset Timing: Continuous Quality: 60 to 90 mg of oxycodone, Xanax and clonazepam Location: Not applicable Current Severity: Mild Maximum Severity: Mild Worsened by: Has not had any meds for 48 hours Relieved by: Nothing Associated Symptoms Associated Symptoms: Positive for tremor, palpatations and unknown; Negative for vomiting*, diarrhea*, fever*, rash*, seizure, change in mental status, trauma, sex for drugs*, no, suicidal ideation, homicidal ideation or *HIV Risk Factors:Consider testing if last test > 6 months Narrative Narrative: Patient is a 33-year-old woman. She was in a detox program several years ago. She had a mommy touchup plastic surgery. When asked to define this she stated she had breast augmentation and tummy tuck. She was started on Percocet. Her drugs of choice are Percocet 60 to 90 mg a day and Xanax and clonazepam. She has not used an approximate 48 hours. She does admit to tobacco use. She denies any other drug use. Person she lives with apparently recently. Patient and her mother found significant other in the [place] apparently decapitated. Patient states she does not want to go back to her apartment. Patient does complain of mild headache. No double vision blurred vision loss of vision. Eyes ringing or ears decreased hearing. No trouble speech or swallowing. She denies cardiac respiratory symptoms. She denies abdominal pain. She does complain of mild nausea. Patient denies dysuria, frequency, urgency or hematuria. Patient denies history of HIV. Prior similar symptoms: Yes Recent Illness/Hospitalization: No [facility] Medical History Substance abuse Home Medications ?Medication ?Instructions ?Recorded ?Last Taken ?Type clonazepam 1 mg tablet 1 mg PO TID PRN PRN anxiety 03/17/24 Unknown History Allergy/AdvReac Type Severity Reaction Status Date / Time ketorolac (From Toradol) Allergy Mild htn Verified 03/17/24 20:53 Social History Smoking Status: Former smoker ROS ROS ED Constitutional Constitutional ED: Denies chills, fever(s), subjective or sweats Eyes Eyes: Denies blurry vision, change in vision or diplopia ENT ENT ED: Denies ear pain, rhinorrhea or sore throat Cardiovascular Cardiovascular: Reports palpitations; Denies chest pain or racing heartbeat Respiratory/Chest Respiratory/Chest: Denies cough, dyspnea or dyspnea on exertion Gastrointestinal Gastrointestinal: Reports nausea; Denies abdominal pain, diarrhea, melena or vomiting Genitourinary Genitourinary ED: Denies dysuria or urinary frequency Musculoskeletal Musculoskeletal: Denies back pain, myalgias or neck pain Integumentary Reports other Details: Numerous tattoos. ; Denies abscess, Abrasions or rash Neurologic Neurologic: Denies headache(s) or paresthesias Psychiatric Psychiatric: Reports anxiety and depression; Denies suicidal ideation Endocrine Endocrinology: Denies cold intolerance or heat intolerance Hematologic/Lymphatic Hematologic/Lymphatic: Denies easy bleeding or easy bruising EXAM Physical Exam Const Vital Signs: 03/17/24 20:53 Temperature 96.2 F L Temperature Source Temporal Pulse Rate 99 Respiratory Rate 16 Blood Pressure 135/65 H Blood Pressure Mean 88 Pulse Ox 100 Oxygen Delivery Method Room Air Positive well nourished and well developed Constitutional Narrative: Patient's vitals are noted. Heart rate is 99. Blood pressure slightly elevated. General Appearance ED: well developed; Negative for pallor HEENT Reports moist mucous membranes HEENT Narrative: Head is atraumatic normocephalic. Ears normal. Nares patent. Posterior pharynx is normal. Eyes PERRL and EOMs intact bilaterally General Eye ED: Negative for pale conjunctiva or scleral icterus Neck no lymphadenopathy, supple and no JVD Lymph Lymphatic: no lymphadenopathy noted and lymphadenopathy Chest Wall inspection of chest normal and palpation of chest normal Resp normal respiratory effort and clear to auscultation bilaterally Cardio regular rate, regular rhythm, S1 normal heart sound, S2 normal heart sound and no murmurs GI soft to palpation, non-tender, non-distended and no masses Back/Spine no CVA tenderness Extremity General Extremety ED: Negative for edema or tenderness General Extremity: Negative for edema Neuro oriented x3 and CN's II-XII intact bilaterally Neuro Narrative: Patient's reflexes are 2-3+ and symmetric. There is no clonus or Babinski sign noted. Trino Coma Scale: document GCS findings Spontaneous Obeys Commands Oriented 15 Sensorium / Orientation: alert Speech: speech normal Motor Exam: strength 5/5 throughout Psych mental status grossly normal and thought process normal Skin General Skin Exam: Negative for jaundice or pallor Lesions: no lesions Rashes: no rashes MDM MDM MDM Narrative Medical decision making narrative: Patient requiring detox. Patient require admission. Spoke to billposting supervisor because of bed shortage to assure there was a bed available prior to ordering labs and contacting hospitalist. Patient will be admitted full MedSurg. Dr. Jerome requested results of test before patient can go up. History & Record Review Additional record(s) reviewed:: Prior outpatient record (Seen April 2017 for asthma. Patient was admitted to [facility] December 2016 for opiate withdrawal and detox) Lab Data Labs: Laboratory Results - last 24 hr 03/17/24 03/17/24 22:00 22:15 Serum , Qual NEGATIVE Ur Drug Screen Comment Ethyl Alcohol < 3.0 Alcohol nondetected. Serum test negative. Management Discussion w/another healthcare provider: Hospitalist (Dr. Jerome requested test prior to admission. Agrees to full admission MedSurg) Discharge Plan Triage Chief Complaint: Substance Abuse ED Provider: Dung Reinoso Dx/Rx/DC Orders Clinical Impression: Benzodiazepine dependence, Opiate dependence, Anxiety and depression Prescriptions: No Action clonazepam 1 mg tablet 1 mg PO TID PRN PRN (Reason: anxiety) Primary Care Provider: Care Physician,No Primary Referrals: Care Physician,No Primary [Primary Care Provider] - Print Language: Malay Disposition Disposition: Acute Care Hospital [facility]
[2024-03-17 22:37] LABS: Internal QC Validated? YES +Cl - CLEAR BKGD; Pregnancy, Serum, hCG Quali. NEGATIVE Negative
[2024-03-17 22:40] LABS: Alcohol, Blood (Medical)-Serum < 3.0 mg/dL
[2024-03-17 22:43] LABS: Amphetamine Urine NEGATIVE (<1000 ng/mL); Barbiturate Urine NEGATIVE (< 200 ng/mL); Benzodiazepine Urine POSITIVE (< 200 ng/mL); Cocaine Urine POSITIVE (< 300 ng/mL); Ecstacy Urine NEGATIVE (< 500 ng/mL); Methadone Urine NEGATIVE (< 300 ng/mL); Opiates Urine NEGATIVE (< 300 ng/mL); PCP Urine NEGATIVE (< 25 ng/mL); THC Urine POSITIVE (< 50 ng/mL); Vista UDS pH Range 5
[2024-03-17 22:44] LABS: ALB/GLOB Ratio 1.1 RATIO (0.9-2.4); AST(SGOT) 9 U/L (15-37); Alanine Aminotransfer ALT/SGPT 22 U/L (13-56); Albumin, Serum 3.5 g/dL (3.2-5.0); Alkaline Phosphatase 94 U/L (45-117); Anion Gap 7 (5-15); BUN 13 mg/dL (7-18); BUN/Creat Ratio 14.8 RATIO (10-20); Calcium,Total 8.4 mg/dL (8.5-10.1); Chloride 106 mmol/L (98-107); Creatinine, Serum 0.88 mg/dL (0.55-1.02); EST Glomerular Filtration Rate 79 mL/min (>60); Est Glom Filt Rate - Afr Amer 96 mL/min (>60); Estimated Creatinine Clearance 85.92 ml/min; Globulin 3.3 g/dL (2.2-4.2); Glucose 98 mg/dL (74-106); Potassium 3.6 mmol/L (3.5-5.1); Protein, Total 6.8 g/dL (6.4-8.2); Sodium Level 140 mmol/L (136-145)
[2024-03-17 23:05] VITALS: BP 110/64; PULSE 78; RESP 16; TEMP 36.8; O2SAT 99
[2024-03-17 23:29] VITALS: BP 115/75; PULSE 82; RESP 16; TEMP 36.5; O2SAT 100
[2024-03-17 23:31] VITALS: BMI 22.8
[2024-03-17] MEDS: Ondansetron 8 MG Tablet PO (23:53)
[2024-03-17] MEDS: Phenobarbital 32.4 MG Tablet 64.8 MG PO (23:53)
[2024-03-17] MEDS: Acetaminophen 325 MG Tablet 650 MG PO (23:53)
[2024-03-17] MEDS: hydrOXYzine PAM 25 MG Capsule 50 MG PO (23:53)
[2024-03-18 00:27] LABS: Absolute Lymphocyte Count 3.54 X10^3/uL (0.83-4.51); Basophil# 0.03 X10^3/uL; Basophil% 0.4 % (0-1); Eosinophil# 0.14 X10^3/uL; Eosinophils% 1.7 % (0-5); Hematocrit 45.1 % (37-47); Hemoglobin 14.7 g/dL (12.0-15.0); Lymphocyte # 3.54 X10^3/ul (0.83-4.51); Lymphocyte % 42.2 % (19-41); Mean Corp Hgb Conc 32.6 g/dL (32-36); Mean Corpuscular Hgb 29.3 pg (27.0-32.0); Mean Corpuscular Volume 89.8 fL (81-99); Mean Platelet Vol. 9.4 fl (6.2-12.0); Monocyte# 0.71 X10^3/uL; Monocyte% 8.5 % (0-10); NRBC Flagged by Analyzer 0 % (0-5); Neutrophil # 3.95 X10^3/uL (2.7-7.7); Neutrophil % 47.1 % (47-70); Platelet Count 217 K/mm3 (150-450); RBC Distribution Width CV 13.5 % (11.6-14.6); RBC Distribution Width SD 44.9 fl (35.1-43.9); Red Blood Count 5.02 M/mm3 (4.2-5.4); White Blood Count 8.4 K/mm3 (4.4-11.0)
[2024-03-18 01:04] LABS: HIV - WCH Non-Reactive (Nonreactive); Hepatitis B Surface Antibody Non-Reactive; Hepatitis B Surface Antigen Non-Reactive (Nonreactive); Hepatitis C Antibody Non-Reactive (Nonreactive); Syphilis Antibodies Non-reactive
[2024-03-18] MEDS: Phenobarbital 32.4 MG Tablet 64.8 MG PO ×5 (04:03→19:44)
[2024-03-18 08:05] VITALS: BP 96/59; PULSE 72; RESP 16; TEMP 36.6; O2SAT 100
[2024-03-18] MEDS: hydrOXYzine PAM 25 MG Capsule 50 MG PO (08:12)
[2024-03-18] MEDS: Ibuprofen 600 MG Tablet PO (08:12)
[2024-03-18 11:03] VITALS: BP 97/46; PULSE 65; RESP 16; TEMP 36.4; O2SAT 100
[2024-03-18 13:27] VITALS: BP 97/45; PULSE 70; RESP 16; TEMP 36.7; O2SAT 98
--- NOTE | 2024-03-18 13:56 | PN_ITS ---
Subjective Subjective Patient seen and examined. She had no active complaints. She denied any withdrawal symptoms. Blood pressure is running low in the 90s systolic. SHe is on room air. Objective Data Objective Data Vital Signs: Vital Signs Temp Pulse Resp BP Pulse Ox O2 Del Method 98.0 F 70 16 97/45 L 98 Room Air 03/18/24 13:27 03/18/24 13:27 03/18/24 13:27 03/18/24 13:27 03/18/24 13:27 03/18/24 13:27 Oxygen Delivery Method Room Air Weight: 141 lb 8 oz Body Mass Index (BMI) 22.8 Intake & Output: Intake and Output for Last 24 Hours 03/16/24 03/17/24 03/18/24 23:59 23:59 23:59 Intake Total 100 / 100 Balance 100 / 100 Lab / Micro Data 03/17/24 23:45 03/17/24 22:15 Labs: Laboratory Results - last 24 hr 03/17/24 22:00: Urine Opiates Screen NEGATIVE, Urine Methadone Screen NEGATIVE, Ur Barbiturates Screen NEGATIVE, Ur Phencyclidine Scrn NEGATIVE, Ur Amphetamines Screen NEGATIVE, MDMA (Ecstasy) Screen NEGATIVE, U Benzodiazepines Scrn POSITIVE H, Urine Cocaine Screen POSITIVE H, U Cannabinoids Screen POSITIVE H, Ur Drug Screen Comment 03/17/24 22:15: Sodium 140, Potassium 3.6, Chloride 106, Carbon Dioxide 27.0, Anion Gap 7, BUN 13, Creatinine 0.88, Estim Creat Clear Calc 85.92, Est GFR (MDRD) Af Amer 96, Est GFR (MDRD) Non-Af 79, BUN/Creatinine Ratio 14.8, Glucose 98, Calcium 8.4 L, Total Bilirubin 0.40, AST 9 L, ALT 22, Alkaline Phosphatase 94, Total Protein 6.8, Albumin 3.5, Globulin 3.3, Albumin/Globulin Ratio 1.1, Serum , Qual NEGATIVE, Ethyl Alcohol < 3.0 03/17/24 23:45: WBC 8.4, RBC 5.02, Hgb 14.7, Hct 45.1, MCV 89.8, MCH 29.3, MCHC 32.6, RDW Std Deviation 44.9 H, RDW Coeff of Maldonado 13.5, Plt Count 217, MPV 9.4, Immature Gran % (Auto) 0.100, Neut % (Auto) 47.1, Lymph % (Auto) 42.2 H, [place] % (Auto) 8.5, Eos % (Auto) 1.7, Baso % (Auto) 0.4, Absolute Neuts (auto) 4.0, Absolute Lymphs (auto) 3.54, Nucleated RBC % 0, Syphilis Total Ab Non-reactive, Hep Bs Antigen Non-Reactive, Hep Bs Antibody Non-Reactive, Hepatitis C Antibody Non-Reactive, HIV 1&2 Antibody Non-Reactive Physical Exam Const alert and oriented x3 Constitutional Narrative: flat affect General Appearance: cooperative HEENT normocephalic, head/scalp atraumatic, moist oral mucous membranes and oropharynx normal Eyes PERRL and EOMs intact bilaterally Neck no lymphadenopathy and supple Lymph Lymphatic: no lymphadenopathy noted Resp normal respiratory effort, normal air movement and clear to auscultation bilaterally Cardio regular rate, regular rhythm, S1 normal heart sound, S2 normal heart sound and no murmurs GI normal to inspection, nondistended, normoactive bowel sounds, soft to palpation, non-tender and non-distended Extremity normal capillary refill, no clubbing, cyanosis or edema and no calf tenderness General Extremity: no tenderness to palpation of joints or extremities Skin General Skin Exam: no breakdown Neuro CN's II-XII intact bilaterally, no focal motor deficits and no sensory deficits noted Motor Exam: general weakness Psych Psych Narrative: flat effect Assessment & Plan Assessment/Plan (1) Benzodiazepine dependence: (2) Opiate dependence: PLAN: Plan #Acute benzodiazepine and opioid withdrawal * on benzodiazepine withdrawal protocol with phenobarbital. * on opioid withdrawal protocol with buprenorphine. * on adjunctive meds for symptomatic relief. * on IV zofran and trazodone prn. * #Nicotine dependence: counseled to quit. Nicotine patch 21mg daily prn #Hypotension: * Blood pressure running low at 97/45. Hydrate with IV fluids and trend blood pressure. * Her blood pressure does seem to run low but this seems to be lower than usual. #Anxiety and depression: * On clonazepam which she had been abusing at home. Follow-up on outpatient basis with PCP and psychiatrist. * #Asthma: Not in exacerbation. Breathing treatments bronchodilators. DVT prophylaxis: Low risk. Encourage ambulation. Charges/Coding Visit Charges Inpatient E&M: 08633 Subs Hosp L2
[2024-03-18] MEDS: Buprenorphine HCl 2 MG TAB.SUBL SL (16:03)
[2024-03-18] MEDS: Acetaminophen 325 MG Tablet 650 MG PO (19:49)
[2024-03-18] MEDS: Ondansetron 8 MG Tablet PO (19:49)
[2024-03-19] MEDS: Phenobarbital 32.4 MG Tablet 64.8 MG PO ×6 (00:20→19:26)
[2024-03-19] MEDS: Buprenorphine HCl 2 MG TAB.SUBL SL ×3 (00:20→16:27)
[2024-03-19] MEDS: traZODone 100 MG Tablet PO (00:20)
[2024-03-19] MEDS: Dicyclomine 10 MG Capsule 20 MG PO (00:26)
[2024-03-19] MEDS: hydrOXYzine PAM 25 MG Capsule 50 MG PO (03:26)
[2024-03-19 03:41] VITALS: BP 106/62; PULSE 80; RESP 17; TEMP 36.3; O2SAT 98
[2024-03-19 07:35] VITALS: BP 105/68; PULSE 68; RESP 13; TEMP 36.4; O2SAT 97
[2024-03-19 10:15] VITALS: O2SAT 97
--- NOTE | 2024-03-19 13:05 | PN_ITS ---
Subjective Subjective Patient seen and examined. She had no active complaints. She denied any symptoms of withdrawal. Review of systems otherwise negative. Objective Data Objective Data Vital Signs: Vital Signs Temp Pulse Resp BP Pulse Ox O2 Del Method 97.6 F L 68 13 105/68 97 Room Air 03/19/24 07:35 03/19/24 07:35 03/19/24 07:35 03/19/24 07:35 03/19/24 10:15 03/19/24 10:15 Oxygen Delivery Method Room Air Weight: 141 lb 8 oz Body Mass Index (BMI) 22.8 Intake & Output: Intake and Output for Last 24 Hours 03/17/24 03/18/24 03/19/24 23:59 23:59 23:59 Intake Total 100 / 100 1999 Balance 100 / 100 1999 Lab / Micro Data 03/17/24 23:45 03/17/24 22:15 Physical Exam Const alert, oriented x3 and no apparent distress General Appearance: cooperative HEENT normocephalic, head/scalp atraumatic, moist oral mucous membranes and oropharynx normal Eyes PERRL and EOMs intact bilaterally Neck no lymphadenopathy and supple Lymph Lymphatic: no lymphadenopathy noted Resp normal respiratory effort, normal air movement and clear to auscultation bilaterally Cardio regular rate, regular rhythm, S1 normal heart sound, S2 normal heart sound and no murmurs GI normal to inspection, nondistended, normoactive bowel sounds, soft to palpation, non-tender and non-distended Extremity normal capillary refill, no clubbing, cyanosis or edema and no calf tenderness General Extremity: no tenderness to palpation of joints or extremities Skin General Skin Exam: no breakdown Neuro CN's II-XII intact bilaterally, no focal motor deficits and no sensory deficits noted Motor Exam: general weakness Psych thought process normal and cooperative Psych Narrative: flat effect Appearance: appropriate Assessment & Plan Assessment/Plan (1) Benzodiazepine dependence: (2) Opiate dependence: PLAN: Plan #Acute benzodiazepine and opioid withdrawal * on benzodiazepine withdrawal protocol with phenobarbital. * on opioid withdrawal protocol with buprenorphine. * on adjunctive meds for symptomatic relief. * on IV zofran and trazodone prn. * #Nicotine dependence: counseled to quit. Nicotine patch 21mg daily prn #Hypotension: * resolved. BP has improved. #Anxiety and depression: * On clonazepam which she had been abusing at home. Follow-up on outpatient basis with PCP and psychiatrist. * #Asthma: Not in exacerbation. Breathing treatments bronchodilators. DVT prophylaxis: Low risk. Encourage ambulation. Disposition: For discharge tomorrow Charges/Coding Visit Charges Inpatient E&M: 26088 Subs Hosp L2
--- NOTE | 2024-03-19 15:33 | CHAPLAIN ---
Type of Pastoral Visit ___ Initial Visit ___ Follow-up Visit ___ On-call Visit ___ General Patient Visit ___ Spiritual Assessment ___ Family Conference ___ Bereavement ___ Rapid Response ___ Code Blue ___ Other (describe below) Pastoral Care Referral From ___ Patient ___ Family ___ Nurse ___ Physician ___ Theatre Professor ___ Artificial Log Machine Operator ___ Other (describe below) Sacrament/Intervention ___ Active listening ___ Anointing ___ Sikh ___ Bereavement ___ Communion ___ Jossy exploration ___ ___ Life review ___ Prayer ___ Reconciliation ___ Sacrament of Sick ___ Supportive presence ___ Wedding ___ Other (describe below) Pastoral Comments introduced self and role at the hospital; pt had been resting but sat up with some effort and looked at lunch tray; pt stated I need to eat now so would you come back when I can focus better; offered made to return tomorrow and pt said that was preferred
[2024-03-19 16:00] VITALS: BP 112/64; PULSE 93; RESP 15; TEMP 36.8; O2SAT 98
[2024-03-19 19:45] VITALS: BP 118/57; PULSE 97; RESP 16; TEMP 37.4; O2SAT 98
[2024-03-20] MEDS: Phenobarbital 32.4 MG Tablet 64.8 MG PO ×3 (00:06→08:19)
[2024-03-20] MEDS: Buprenorphine HCl 2 MG TAB.SUBL SL ×2 (00:06→08:19)
[2024-03-20] MEDS: hydrOXYzine PAM 25 MG Capsule 50 MG PO (04:55)
[2024-03-20] MEDS: Loperamide 2 MG Capsule PO (04:56)
[2024-03-20 05:02] VITALS: BP 113/71; PULSE 89; RESP 16; TEMP 36.5; O2SAT 99
[2024-03-20 06:50] VITALS: O2SAT 95
[2024-03-20 08:14] VITALS: BP 110/66; PULSE 87; RESP 13; TEMP 36.5; O2SAT 96
--- NOTE | 2024-03-20 12:14 | ADDICTION ---
Met with Pt. Completed all RAMP assessments. Pt plans to follow up with outpatient treatment. A list of resources were provided in her area. Pt reports she will look into [facility] for services.
--- NOTE | 2024-03-20 12:53 | CHAPLAIN ---
Type of Pastoral Visit _x__ Initial Visit ___ Follow-up Visit ___ On-call Visit ___ General Patient Visit ___ Spiritual Assessment ___ Family Conference ___ Bereavement ___ Rapid Response ___ Code Blue ___ Other (describe below) Pastoral Care Referral From _x__ Patient ___ Family ___ Nurse ___ Physician ___ Polish Compounder ___ Crook Operator ___ Other (describe below) Sacrament/Intervention _x__ Active listening ___ Anointing ___ Yazidism ___ Bereavement ___ Communion _x__ Jossy exploration ___ _x__ Life review _x__ Prayer ___ Reconciliation ___ Sacrament of Sick _x__ Supportive presence ___ Wedding ___ Other (describe below) Pastoral Comments patient admits to feeling 'pretty bad' but willing to have a visit and prayer; pt asks prayer for a crime to be solved that involved the murder of her cousin; pt had been clean but relapsed after surgery; explored patient's goals, support system, jossy resources, and feelings; pt is dealing with some shame and fear of failing; patient has had a jossy community in the past but has been away from that more recently; pt has two sons who are my life; supportive presence and encouragement to follow through on recovery
[2024-03-20 13:23] VITALS: BP 119/76; PULSE 101; RESP 15; TEMP 36.9; O2SAT 100
--- NOTE | 2024-03-20 13:24 | DCINST_ITS ---
Discharge Instructions Diet Discharge Diet: No restrictions DC O2, CPAP, BIPAP needs Home O2 Discharge instructions: No Dressing / Incision Weight Bearing Status: Weight bearing as tolerated Dressing / Incision Call your doctor if you observe: Fever of 101 or Higher, Shortness of breath, Dizziness, Chest pain and Increased palpitations (irregular heartbeat) Follow Up Care Test Results: Test results from this visit will be discussed in further detail at your follow- up appointment, if applicable. Discharge Plan Admission Admit Date/Time: 03/17/24 22:28 Primary Reason for Your Visit: acute opioid and benzodiazepine withdrawal Attending Provider: Celeste Torres Primary Care Provider: Care Physician,No Primary Consulting Providers: Nyasia Jerome Instructions Patient Instructions: ED Opioid Withdrawal, ED Benzodiazepine Withdrawal Discharge Orders/Prescriptions Prescriptions: New gabapentin [Neurontin] 100 mg capsule 100 mg PO TID 14 Days Qty: 42 0RF Continued clonazepam 1 mg tablet 1 mg PO TID PRN PRN (Reason: anxiety) Other Ambulatory Orders: RAMP - Benzodiazepine Use (Routine) Location: None Selected Ordered By: Dr. Celeste Torres Referrals / Follow Up: Payton Mckeon MD [Med Staff - Active Staff] - Within 2 Weeks (see to establish PCP care ) Care Physician,No Primary [Primary Care Provider] - Disposition Disposition (needs filled in before D/C Order can be placed): Home, Self Care
--- NOTE | 2024-03-20 13:24 | PCM.DC.SUM ---
Providers Date of Admission: 03/17/24 Date of Discharge: 03/20/24 Primary Care Physician: No Primary Care Phys Reason For Visit: OPIATE/BZD WITHDRAWL Diagnosis Discharge Diagnosis (1) Benzodiazepine dependence: Status: Acute Code(s): F13.20 - Sedative, hypnotic or anxiolytic dependence, uncomplicated (2) Opiate dependence: Status: Acute Code(s): F11.20 - Opioid dependence, uncomplicated Plan #Acute benzodiazepine and opioid withdrawal on benzodiazepine withdrawal protocol with phenobarbital. on opioid withdrawal protocol with buprenorphine. on adjunctive meds for symptomatic relief. on IV zofran and trazodone prn. #Nicotine dependence: counseled to quit. Nicotine patch 21mg daily prn #Hypotension: resolved. BP has improved. #Anxiety and depression: On clonazepam which she had been abusing at home. Follow-up on outpatient basis with PCP and psychiatrist. #Asthma: Not in exacerbation. Breathing treatments bronchodilators. DVT prophylaxis: Low risk. Encourage ambulation. Disposition: For discharge tomorrow Medications at Discharge Home Medications clonazepam 1 mg tablet 1 mg PO TID PRN PRN anxiety 03/17/24 gabapentin 100 mg capsule (Neurontin) 100 mg PO TID 14 days #42 caps 03/20/24 Hospital Course Operations None Procedures None Summary of Care Provided Minutes Spent on Discharge: 37 Hospital Course: Patient is a 33-year-old female with a past medical history as outlined including anxiety and depression and opioid and benzodiazepine dependence was admitted to the ED on 04/06/2024 for acute withdrawal from both benzodiazepine and opiates. Her last intake of both had been within the last 48 hours prior to admission. She complained of nausea and abdominal cramping and restlessness. She denied any IV drug use. She usually took about 60 to 90 mg of oxycodone, clonazepam and Xanax. She had been exposed to a traumatic event recently with her cousin being decapitated and this had exacerbated her anxiety. On admission urine tox was positive for benzodiazepines and cocaine as well as cannabis. Serum alcohol level was less than 3. She was admitted and managed for acute opioid and benzodiazepine withdrawal. She was placed on opioid withdrawal protocol with buprenorphine and benzodiazepine withdrawal protocol with phenobarbital taper. She tolerated the 3-day detox process and did well. She remained stable and was discharged home with gabapentin 100 mg 3 times daily for 2 weeks as per the ramp discharge protocol. She is follow-up with her primary care doctor within 1 to 2 weeks. She did have a PCP so was referred to [facility]. She was also given resources to follow-up with an outpatient rehab facility. Patient seen and examined prior to discharge. She felt well and had no complaints. Review of systems is otherwise negative. Labs and vitals reviewed. Home medication reviewed and reconciled. Physical Exam Const alert, oriented x3 and no apparent distress General Appearance: cooperative Orientation / Consciousness: awake HEENT normocephalic, head/scalp atraumatic, hearing grossly normal bilaterally, moist oral mucous membranes and oropharynx normal Mouth: oral and palatal mucosa normal Eyes PERRL, EOMs intact bilaterally and conjunctivae normal Neck no lymphadenopathy and supple Lymph Lymphatic: no lymphadenopathy noted Resp normal respiratory effort, normal air movement and clear to auscultation bilaterally Cardio regular rate, regular rhythm, S1 normal heart sound, S2 normal heart sound and no murmurs GI normal to inspection, nondistended, normoactive bowel sounds, soft to palpation, non-tender and non-distended Extremity normal to inspection, full ROM, normal capillary refill, no clubbing, cyanosis or edema and no calf tenderness General Extremity: no tenderness to palpation of joints or extremities Skin no rashes or lesions noted General Skin Exam: no breakdown Neuro oriented x3, CN's II-XII intact bilaterally, moves all extremities, no focal motor deficits and no sensory deficits noted Sensorium / Orientation: awake and alert Motor Exam: strength 5/5 throughout Psych thought process normal and cooperative Psych Narrative: flat effect Appearance: appropriate Weight / BMI Weight Weight: 141 lb 8 oz Body Mass Index (BMI) 22.8 ABG / Lab / Microbiology Data 03/17/24 23:45 03/17/24 22:15 D/C Instructions Discharge Diet: No restrictions Discharge Activity: Return to Normal Activity Weight Bearing Status: Weight bearing as tolerated Call your doctor if you observe: Fever of 101 or Higher, Shortness of breath, Dizziness, Chest pain and Increased palpitations (irregular heartbeat) DC O2, CPAP, BIPAP Needs Home O2 Discharge instructions: No Meaningful Use Info Meaningful Use Meaningful Use Diagnoses (Choose all that apply): None applicable Ischemic Stroke Statin Dosing Therapy Reference: STATIN DOSE THERAPY REFERENCE: * Patients > 75 years receive moderate or high dose statin therapy. * Patients 75 years or YOUNGER should receive HIGH intensity statin dose unless contraindicated. You will be required to document reason for non-treatment if statin daily dose does not meet guidelines. HIGH DOSE STATIN THERAPY DAILY Atorvastatin > than or = to 40 mg Rosuvastatin > than or = to 20 mg Amlodipine + Atorvastatin > than or = to 2.5/40 mg Ezetimibe + Simvastatin 10/80 mg Simvastatin 80mg Discharge Plan Admission Admit Date/Time: 03/17/24 22:28 Primary Reason for Your Visit: acute opioid and benzodiazepine withdrawal Attending Provider: Celeste Torres Primary Care Provider: Care Physician,No Primary Consulting Providers: Nyasia Jerome Instructions Patient Instructions: ED Opioid Withdrawal, ED Benzodiazepine Withdrawal Discharge Orders/Prescriptions Prescriptions: New gabapentin [Neurontin] 100 mg capsule 100 mg PO TID 14 Days Qty: 42 0RF Continued clonazepam 1 mg tablet 1 mg PO TID PRN PRN (Reason: anxiety) Other Ambulatory Orders: RAMP - Benzodiazepine Use (Routine) Location: None Selected Ordered By: Dr. Celeste Torres Referrals / Follow Up: Payton Mckeon MD [Med Staff - Active Staff] - Within 2 Weeks (see to establish PCP care ) Care Physician,No Primary [Primary Care Provider] - Disposition Disposition (needs filled in before D/C Order can be placed): Home, Self Care Charges/Coding Visit Charges Inpatient E&M: 63408 Disch Hosp >30min
== END 2024-03-20 14:58 | disposition home or self-care (01) | DRG 773 ==
LOC: ED 22:42 → MS3 03-18 07:13
PROVIDERS: Admitting Provider Family Medicine; Emergency Provider Emergency Medicine; Visit Provider Student in an Organized Health Care Education/Training Program
DX: F11.23 Opioid dependence with withdrawal (principal); F13.239 Sedative, hypnotic or anxiolytic dependence with withdrawal, unspecified; F17.290 Nicotine dependence, other tobacco product, uncomplicated; F32.A Depression, unspecified; J45.909 Unspecified asthma, uncomplicated; F41.9 Anxiety disorder, unspecified; I95.89 Other hypotension; Z63.4 Disappearance and death of family member; Z79.899 Other long term (current) drug therapy
CPT/HCPCS: 36415; 80053; 80307; 82077; 84703; 85025; 86703; 86706; 86780; 86803; 87340; 99283; H0012

== ENCOUNTER 2024-12-13 02:22 | Inpatient (IN) | payer MEDICAID, SELFPAY ==
[2024-12-13] VITALS (12 sets, daily range): BP systolic 95–114; BP diastolic 50–69; PULSE 74–98; RESP 16–18; TEMP 36.4–36.9; O2SAT 96–100; BMI 22.4; BMI 21.9
--- NOTE | 2024-12-13 02:39 | EKG12_ITS ---
Test Reason : SUB ABUSE
[2024-12-13 02:49] LABS: Hematocrit 41.5 % (37-47); Hemoglobin 14.4 g/dL (12.0-15.0); Immature Granulocytes Count 0.020 X10^3/uL (0.0-0.0); Mean Corp Hgb Conc 34.7 g/dL (32-36); Mean Corpuscular Volume 88.3 fL (81-99); Mean Platelet Vol. 8.8 fl (6.2-12.0); NRBC Flagged by Analyzer 0 % (0-5); Platelet Count 220 K/mm3 (150-450); RBC Distribution Width CV 13.1 % (11.6-14.6); RBC Distribution Width SD 42.5 fl (35.1-43.9); Red Blood Count 4.70 M/mm3 (4.2-5.4); White Blood Count 7.9 K/mm3 (4.4-11.0)
--- NOTE | 2024-12-13 02:52 | EX.ED.DYSGE1 ---
HPI History of Present Illness Chief Complaint: Substance Abuse Informant: patient Narrative Narrative: Patient is a 34-year-old female with past medical history of anxiety and depression as well as opioid abuse cocaine abuse alcohol abuse and benzodiazepine and abuse. She was admitted to the hospital in March of this year secondary to opioid abuse. She states since that time she is on very well and not using opioids. She states however that she is continue to use cocaine and alcohol almost daily and is prescribed Klonopin for her anxiety and takes that 3 times a day as directed. She states that she is seeking readmission to the hospital to help with her polysubstance abuse of cocaine and alcohol and therefore comes in for evaluation. Patient states her last use of cocaine and alcohol was 2 days ago. She states she is feeling anxious and jittery with nausea vomiting and diarrhea. [facility] Medical History Opiate dependence Benzodiazepine dependence Acute opioid withdrawal Kidney stones Migraines Seizures Former cigarette smoker Vaping nicotine dependence, tobacco product Substance abuse Asthma Tobacco dependence Anxiety and depression Home Medications ?Medication ?Instructions ?Recorded ?Last Taken ?Type clonazepam 1 mg tablet 1 mg PO TID PRN PRN anxiety 03/17/24 Unknown History gabapentin 100 mg capsule 100 mg PO TID 14 days #42 caps 03/20/24 Unknown Rx (Neurontin) Allergy/AdvReac Type Severity Reaction Status Date / Time ketorolac (From Toradol) Allergy Mild htn Verified 12/13/24 02:28 Family History Father Polysubstance abuse Anxiety and depression Mother Alcohol abuse COPD (chronic obstructive pulmonary disease) Asthma Surgical History S/P breast augmentation History of abdominoplasty Social History household members: none Smoking Status: Current every day smoker tobacco type: cigarettes Electronic Cigarette Use: with nicotine alcohol intake: current alcohol intake frequency: holidays/special occasions only substance use type: other details: Rx opiate/BZD abuse, also purchased. ROS ROS ED Constitutional Constitutional ED: Denies chills or fever(s) Eyes Eyes: Denies blurry vision or change in vision ENT ENT ED: Denies sore throat Cardiovascular Cardiovascular: Reports palpitations; Denies chest pain or racing heartbeat Respiratory/Chest Respiratory/Chest: Denies cough or dyspnea Gastrointestinal Gastrointestinal: Reports diarrhea, nausea and vomiting; Denies abdominal pain Genitourinary Genitourinary ED: Denies dysuria Musculoskeletal Musculoskeletal: Denies myalgias Integumentary Denies rash Neurologic Neurologic: Denies headache(s) or paresthesias Psychiatric Psychiatric: Reports anxiety; Denies suicidal ideation or suicidal thoughts Hematologic/Lymphatic Hematologic/Lymphatic: Denies easy bleeding or easy bruising EXAM Physical Exam Const Vital Signs: 12/13/24 02:24 12/13/24 03:47 Temperature 97.5 F L 97.5 F L Temperature Source Oral Pulse Rate 75 75 Respiratory Rate 16 18 Blood Pressure 113/69 97/67 Blood Pressure Mean 83 77 Pulse Ox 100 100 Oxygen Delivery Method Room Air Positive well nourished and well developed General Appearance ED: well developed; Negative for pallor HEENT HEENT Narrative: Normocephalic atraumatic No tongue or cheek biting noted No secondary findings in the posterior pharynx to suggest infection Bilateral TMs are slightly retracted but overall show no signs consistent with infection Eyes PERRL and EOMs intact bilaterally General Eye ED: Negative for scleral icterus Neck supple Neck Narrative: No nuchal rigidity or meningeal signs Resp normal respiratory effort and clear to auscultation bilaterally Cardio regular rate and regular rhythm Rate: other Other Details: Heart is regular rate and rhythm without murmurs rubs or gallops Radial and carotid pulses are equal and symmetric GI normal to inspection, nondistended, normoactive bowel sounds, non-tender, non-distended and no masses GI Narrative: Abdomen is soft nontender nondistended with hypoactive bowel sounds No voluntary guarding or rigidity or pulsatile mass Auscultation: hypoactive bowel sounds Palpation: soft Extremity normal to inspection Extremity Narrative: No asymmetric edema no pitting edema negative Homans' sign bilaterally Neuro oriented x3, CN's II-XII intact bilaterally and no sensory deficits noted Sensorium / Orientation: alert Motor Exam: strength 5/5 throughout Psych Psych Narrative: Patient denies homicidal or suicidal ideations Mood & Affect: anxious Skin no rashes or lesions noted General Skin Exam: Negative for jaundice or pallor MDM MDM MDM Narrative Medical decision making narrative: Patient arrived to ER stable vitals. She reported a longstanding history of polysubstance abuse such as opioids benzodiazepines cocaine and alcohol. She states that she does not drink every day but that she drinks most days and can finish a bottle of tequila on the days she drinks. She reports has been 2 days since her last cocaine use or alcohol use. She states she does take benzodiazepine/Klonopin 3 times a day and this is for anxiety and PTSD. She reports has been taking that as directed. At this time her physical exam and vital signs do not suggest acute alcohol withdrawal most likely because she is on persistent benzodiazepines. However she is reporting symptoms of this with nausea vomiting diarrhea and sensation of jitteriness/anxiety. At this time as she is requesting detox for the polysubstance use I will perform basic laboratory screening to ensure patient is medically cleared for placement. At this time she does not have leukocytosis or left shift there are no signs of acute kidney injury or clinically significant electrolyte abnormality. Urine sample does not show findings of infection she is not . Talk screen is positive for cocaine benzodiazepines and marijuana which correlates with her reported history. Cocaine use was reported 2 days ago which would indicate why it is still in her system. Secondary to this I did elect to perform an EKG to ensure there is no cardiac dysrhythmia or ischemia which was normal. The patient's physical exam and vitals do not suggest withdrawal but as she was reporting withdrawal symptoms and her alcohol level is negative I will give her phenobarbital to ensure there is no progression of symptoms. At this time overall workup is negative except for her polysubstance use and as she is requesting detox I did discuss the case with the hospitalist who agrees to accept the patient for continued care History & Record Review Discussion w/independent historian: Patient Lab Data Attestation: I reviewed the patient's lab results. Labs: Laboratory Results - last 24 hr 12/13/24 12/13/24 02:30 02:45 WBC 7.9 RBC 4.70 Hgb 14.4 Hct 41.5 MCV 88.3 MCH 30.6 MCHC 34.7 RDW Std Deviation 42.5 RDW Coeff of Maldonado 13.1 Plt Count 220 MPV 8.8 Immature Gran % (Auto) 0.300 Neut % (Auto) 47.0 Lymph % (Auto) 39.8 Tyrrell % (Auto) 8.4 Eos % (Auto) 3.9 Baso % (Auto) 0.6 Absolute Neuts (auto) 3.7 Absolute Lymphs (auto) 3.16 Nucleated RBC % 0 Sodium 139 Potassium 3.4 Chloride 106 Carbon Dioxide 24.5 Anion Gap 9 BUN 14 Creatinine 0.91 Estim Creat Clear Calc 82.32 Est GFR (MDRD) Non-Af 86 BUN/Creatinine Ratio 15.4 Glucose 94 Calcium 8.2 Magnesium 1.9 Total Bilirubin 0.29 AST 17 ALT 14 Alkaline Phosphatase 74 Total Protein 6.3 Albumin 4.0 Globulin 2.2 Albumin/Globulin Ratio 1.8 Urine Color Yellow Urine Clarity Sl. Cloudy Urine pH 5.0 Ur Specific [place] 1.025 Urine Protein 15 H Urine Glucose (UA) Normal Urine Ketones Negative Urine Occult Blood Negative Urine Nitrite Negative Urine Bilirubin Negative Urine Urobilinogen 1 H Ur Leukocyte Esterase Negative Urine RBC 0 SEEN Urine WBC 0-5 SEEN Ur Squamous Epith Cells 0-5 SEEN Urine Bacteria 1+ Urine Mucus RARE Urine Test Negative Urine Opiates Screen NEGATIVE U Buprenorphine Qual NEGATIVE Ur Oxycodone Screen NEGATIVE Urine Methadone Screen NEGATIVE Urine Fentanyl Screen NEGATIVE Ur Barbiturates Screen NEGATIVE Ur Phencyclidine Scrn NEGATIVE Ur Amphetamines Screen PRESUMPTIVE POSITIVE U Benzodiazepines Scrn PRESUMPTIVE POSITIVE Urine Cocaine Screen PRESUMPTIVE POSITIVE U Cannabinoids Screen PRESUMPTIVE POSITIVE Ethyl Alcohol < 10.1 Management Discussion w/another healthcare provider: Hospitalist Discharge Plan Dx/Rx/DC Orders Clinical Impression: Polysubstance abuse, Alcohol abuse, Desire for detoxification Disposition Disposition: Acute Care Hospital [facility]
[2024-12-13 02:55] LABS: Internal QC Validated? YES +Cl - CLEAR BKGD; Pregnancy, Urine Negative Negative; Record Kit Lot#,Urine Preg 980607
[2024-12-13 03:18] LABS: Barbiturate Urine NEGATIVE (< 200 ng/mL); Benzodiazepine Urine PRESUMPTIVE POSITIVE (< 200 ng/mL); PCP Urine NEGATIVE (< 25 ng/mL); THC Urine PRESUMPTIVE POSITIVE (< 50 ng/mL)
[2024-12-13 03:19] LABS: AST(SGOT) 17 U/L (<=31); Alanine Aminotransfer ALT/SGPT 14 U/L (<=34); Albumin, Serum 4.0 g/dL (3.5-5.0); Alcohol, Blood (Medical)-Serum < 10.1 mg/dL (<=10.0); Alkaline Phosphatase 74 U/L (35-104); Anion Gap 9 (5-15); BUN 14 mg/dL (4-19); BUN/Creat Ratio 15.4 RATIO (10-20); Calcium,Total 8.2 mg/dL (7.6-11.0); Carbon Dioxide 24.5 mmol/L (21.0-32.0); Chloride 106 mmol/L (98-108); Estimated Creatinine Clearance 82.32 ml/min (50-250); Globulin 2.2 g/dL (2.2-4.2); Glucose 94 mg/dL (70-99); Magnesium 1.9 mg/dL (1.5-2.2); Potassium 3.4 mmol/L (3.3-5.1)
[2024-12-13 03:25] LABS: Red Blood Cells-Urine 0 SEEN /hpf (0-5)
[2024-12-13 03:26] LABS: Color, Urine Yellow (Yellow); Glucose, Dipstick Normal (Normal); Ketone-Dipstick Negative (Negative); Leukocyte Esterase-Dipstick Negative /ul (Negative); Nitrite-Dipstick Negative (Negative); Occult Blood-Urine Negative /ul (Negative); Protein-Dipstick 15 mg/dl (Negative); Specific Gravity, Urine 1.025 (1.002-1.030); Urine Bilirubin Dipstick Negative (Negative)
[2024-12-13 03:33] LABS: Mucous, Urine RARE /hpf (<or=2+); Squamous Epithelial Cells - UA 0-5 SEEN /hpf (5-10)
--- NOTE | 2024-12-13 03:42 | PCM.HP.STD ---
HPI - General General Date of Admission: 12/13/24 Date of Service: 12/13/24 Chief Complaint: Acute EtOH withdrawal. HPI Narrative The patient is a 34-year-old female with past medical history anxiety and depression, tobacco use, asthma, recurrent UTIs, recent history of surgical intervention in 2023 with abdominoplasty and breast augmentation on narcotic therapy as result with eventual abuse with recent increased anxiety secondary to traumatic events resulting in polysubstance abuse with both benzodiazepine and opiate abuse who presents to the [facility] ED 12/13/2024 reporting that since hospitalization 03/2024 she has been opiate free however she reports she is continuing to use cocaine as well as alcohol almost daily, specifically tequila approximately 1/5 daily with last usage approximate 1.5 days prior to current presentation. She does report that she use Klonopin however she uses this prescribed apparently 3 times daily. She presents asking for assistance with withdrawal with alcohol. Her last usage was 2 days prior she notes she has felt anxious, restless, had nausea, emesis and occasional loose stool. Workup in the ED included T97.5, heart rate 75, BP 113/69, respiratory rate 16, no percent room air, CBC with WBC 7.9, Hgb 4.4, platelet 220 without marked shift, CMP unremarkable, magnesium 1.1, urinalysis unremarkable, UDS with presumptive positive amphetamine, benzodiazepine, cocaine, cannabis, ethyl alcohol less than 10.1. [facility] Medical History Opiate dependence Benzodiazepine dependence Acute opioid withdrawal Kidney stones Migraines Seizures Former cigarette smoker Vaping nicotine dependence, tobacco product Substance abuse Asthma Tobacco dependence Anxiety and depression Home Medications ?Medication ?Instructions ?Recorded ?Last Taken ?Type clonazepam 1 mg tablet 1 mg PO TID PRN PRN anxiety 03/17/24 Unknown History gabapentin 100 mg capsule 100 mg PO TID 14 days #42 caps 03/20/24 Unknown Rx (Neurontin) Allergy/AdvReac Type Severity Reaction Status Date / Time ketorolac (From Toradol) Allergy Mild htn Verified 12/13/24 02:28 Family History Father Polysubstance abuse Anxiety and depression Mother Alcohol abuse COPD (chronic obstructive pulmonary disease) Asthma Surgical History S/P breast augmentation History of abdominoplasty Social History (Updated 12/13/24 @ 04:[address] Nyasia Jerome MD) household members: none Smoking Status: Current every day smoker tobacco type: cigarettes Electronic Cigarette Use: with nicotine alcohol intake: current alcohol intake frequency: 3 or more drinks per day Alcohol type: hard liquor details: 02/15 tequilla daily. substance use type: other details: Rx opiate/BZD abuse, also purchased. ROS ROS Narrative Admission Review of Systems: CONSTITUTIONAL: No weight loss, fever, chills, + weakness or fatigue. HEENT: Eyes: No visual loss, blurred vision, double vision or yellow sclerae. Ears, Nose, Throat: No hearing loss, sneezing, congestion, runny nose or sore throat. SKIN: No rash or itching, lesions, wounds. CARDIOVASCULAR: No chest pain, chest pressure or chest discomfort, palpitations, edema, orthopnea, syncopal events. RESPIRATORY: No shortness of breath, cough or sputum, wheezing, hemoptysis. GASTROINTESTINAL: + anorexia, nausea, vomiting, abdominal cramping, diarrhea. No melena, BRBPR. GENITOURINARY: No dysuria, frequency, urgency or retention. NEUROLOGICAL: + Restlessness, tactile disturbances. No headache, dizziness, syncope, paralysis, ataxia, numbness or tingling in the extremities, focal weakness, change in bowel or bladder control, seizure. MUSCULOSKELETAL: + muscle, back pain, joint pain or stiffness. HEMATOLOGIC: No anemia, bleeding or bruising. LYMPHATICS: No enlarged nodes. No history of splenectomy. PSYCHIATRIC: + History anxiety and depression. ENDOCRINOLOGIC: No reports of sweating, cold or heat intolerance. No polyuria or polydipsia. ALLERGIES: + Hx asthma. Vital Signs Vital Signs Vital Signs: 12/13/24 02:24 Temperature 97.5 F L Temperature Source Oral Pulse Rate 75 Respiratory Rate 16 Blood Pressure 113/69 Blood Pressure Mean 83 Pulse Ox 100 Oxygen Delivery Method Room Air Weight Weight: 138 lb 14.259 oz Body Mass Index (BMI) 22.4 Physical Exam Narrative Physical Examination: General: Awake, alert, oriented x 3 and cooperative, laying in the ED bed, fatigued, once more alert noted to be mildly restless. Skin: Normal color, normal turgor, no icterus, no cyanosis except occasional stage ecchymoses, abrasion, several tattoos. HEENT: AT/NC, EOMI, PERRLA, dry MM, no carotid bruits or JVD noted. Lungs: Mildly diminished, greater bases, appropriate effort, no rales, ronchi or wheezing. Heart: Regular rate with regular rhythm; no gallop, rub audible. Abdomen: Soft, mild generalized discomfort with no rebound or guarding, mildly hyperactive BS, no evidence of any distention, no appreciated HSM. Extremities: No cyanosis, clubbing, or edema. Neurological: Patient awake, alert, oriented as noted, cognitive function intact; pupils equally reactive to light and accommodation, cranial nerves gross normal, moving all 4 extremities, no focal deficits, restless, reporting tactile disturbances, strength mildly to moderately global decrease secondary to withdrawal symptoms Psychiatric: Affect appears fatigued, no acute evidence of anxiety depression but does have underlying history. Results Lab / Micro Data 12/13/24 02:30 12/13/24 02:30 Labs: Laboratory Results - last 24 hr 12/13/24 02:30: WBC 7.9, RBC 4.70, Hgb 14.4, Hct 41.5, MCV 88.3, MCH 30.6, MCHC 34.7, RDW Std Deviation 42.5, RDW Coeff of Maldonado 13.1, Plt Count 220, MPV 8.8, Immature Gran % (Auto) 0.300, Neut % (Auto) 47.0, Lymph % (Auto) 39.8, [place] % (Auto) 8.4, Eos % (Auto) 3.9, Baso % (Auto) 0.6, Absolute Neuts (auto) 3.7, Absolute Lymphs (auto) 3.16, Nucleated RBC % 0, Sodium 139, Potassium 3.4, Chloride 106, Carbon Dioxide 24.5, Anion Gap 9, BUN 14, Creatinine 0.91, Estim Creat Clear Calc 82.32, Est GFR (MDRD) Non-Af 86, BUN/Creatinine Ratio 15.4, Glucose 94, Calcium 8.2, Magnesium 1.9, Total Bilirubin 0.29, AST 17, ALT 14, Alkaline Phosphatase 74, Total Protein 6.3, Albumin 4.0, Globulin 2.2, Albumin/Globulin Ratio 1.8, Ethyl Alcohol < 10.1 12/13/24 02:45: Urine Color Yellow, Urine Clarity Sl. Cloudy, Urine pH 5.0, Ur Specific [place] 1.025, Urine Protein 15 H, Urine Glucose (UA) Normal, Urine Ketones Negative, Urine Occult Blood Negative, Urine Nitrite Negative, Urine Bilirubin Negative, Urine Urobilinogen 1 H, Ur Leukocyte Esterase Negative, Urine RBC 0 SEEN, Urine WBC 0-5 SEEN, Ur Squamous Epith Cells 0-5 SEEN, Urine Bacteria 1+, Urine Mucus RARE, Urine Test Negative, Urine Opiates Screen NEGATIVE, U Buprenorphine Qual NEGATIVE, Ur Oxycodone Screen NEGATIVE, Urine Methadone Screen NEGATIVE, Urine Fentanyl Screen NEGATIVE, Ur Barbiturates Screen NEGATIVE, Ur Phencyclidine Scrn NEGATIVE, Ur Amphetamines Screen PRESUMPTIVE POSITIVE, U Benzodiazepines Scrn PRESUMPTIVE POSITIVE, Urine Cocaine Screen PRESUMPTIVE POSITIVE, U Cannabinoids Screen PRESUMPTIVE POSITIVE Assessment & Plan Assessment/Plan (1) Alcohol withdrawal: PLAN: Plan The patient is a 34-year-old female with past medical history anxiety and depression, tobacco use, asthma, recurrent UTIs, recent history of surgical intervention in 2023 with abdominoplasty and breast augmentation on narcotic therapy as result with eventual abuse with recent increased anxiety secondary to traumatic events resulting in polysubstance abuse with both benzodiazepine and opiate abuse who presents to the [facility] ED 12/13/2024 reporting that since hospitalization 03/2024 she has been opiate free however she reports she is continuing to use cocaine as well as alcohol almost daily. #1. Acute EtOH withdrawal, BZD dependence: Will admit to medical surgical floor, routine labs obtained in the ED as noted. Given interest in sober/clean status, will initiate and continue on protocol with taper course of Phenobarbital, as needed gabapentin, Catapres, Bentyl, Vistaril, IV fluids, IV antiemetics, Tylenol as needed for pain. Mag normal per ED, phos requested. Will consult Case management for assistance for transition to next level of rehabilitation care. #2. History of Opiate Abuse: Notes that since recent admission 03/2024 for opiate abuse/withdrawal she has been clean, encouraged continued clean status. #3. Tobacco use: Encourage tobacco cessation, RT consulted for education, NR ordered. #3. Anxiety and depression: Patient reports using clonazepam 3 times daily; however, during her recent presentation she had also admitted to benzodiazepine abuse and also was treated for withdrawal at that time, as noted above will maintain on phenobarbital, would benefit from discontinuation of the clonazepam, outpatient counseling for her PTSD/anxiety depression, case management/weighty consulted. #4. Chronic asthma: Not on any chronic regimen, PRN albuterol, encourage tobacco cessation. #5. DVT Prophylaxis: Low risk, encourage ambulation. Charges/Coding Visit Charges Inpatient E&M: 72898 Init Hosp L2
[2024-12-13] MEDS: hydrOXYzine PAM 25 MG Capsule 50 MG PO (05:32)
[2024-12-13] MEDS: Thiamine Hydrochloride 100 MG Tablet PO (09:03)
[2024-12-13] MEDS: Nicotine (PBKC) 21 MG Patch TD (09:03)
--- NOTE | 2024-12-13 11:23 | PCM.HOSP.N ---
Hospitalist Note Patient drinks tequila about 1 pint per day. She started drinking alcohol again and on and off and then increased to the present status. She states she also has used substance/drugs like benzodiazepine, crack cocaine and opioids. Currently she is having withdrawal symptoms anxiety restlessness tossing. She has mild epigastric right upper quadrant pain. Liver chemistry shows normal transaminases alkaline phosphatase and total bilirubin. Albumin 4.0. UTOX negative of oxycodone opioid screen but positive for amphetamine, benzodiazepine and cocaine and cannabinoids. Laboratory Results 12/13/24 02:30: WBC 7.9, RBC 4.70, Hgb 14.4, Hct 41.5, MCV 88.3, MCH 30.6, MCHC 34.7, RDW Std Deviation 42.5, RDW Coeff of Maldonado 13.1, Plt Count 220, MPV 8.8, Immature Gran % (Auto) 0.300, Neut % (Auto) 47.0, Lymph % (Auto) 39.8, [place] % (Auto) 8.4, Eos % (Auto) 3.9, Baso % (Auto) 0.6, Absolute Neuts (auto) 3.7, Absolute Lymphs (auto) 3.16, Nucleated RBC % 0, Sodium 139, Potassium 3.4, Chloride 106, Carbon Dioxide 24.5, Anion Gap 9, BUN 14, Creatinine 0.91, Estim Creat Clear Calc 82.32, Est GFR (MDRD) Non-Af 86, BUN/Creatinine Ratio 15.4, Glucose 94, Calcium 8.2, Phosphorus 3.6, Magnesium 1.9, Total Bilirubin 0.29, AST 17, ALT 14, Alkaline Phosphatase 74, Total Protein 6.3, Albumin 4.0, Globulin 2.2, Albumin/Globulin Ratio 1.8, Ethyl Alcohol < 10.1 12/13/24 02:45: Urine Color Yellow, Urine Clarity Sl. Cloudy, Urine pH 5.0, Ur Specific [place] 1.025, Urine Protein 15 H, Urine Glucose (UA) Normal, Urine Ketones Negative, Urine Occult Blood Negative, Urine Nitrite Negative, Urine Bilirubin Negative, Urine Urobilinogen 1 H, Ur Leukocyte Esterase Negative, Urine RBC 0 SEEN, Urine WBC 0-5 SEEN, Ur Squamous Epith Cells 0-5 SEEN, Urine Bacteria 1+, Urine Mucus RARE, Urine Test Negative, Urine Opiates Screen NEGATIVE, U Buprenorphine Qual NEGATIVE, Ur Oxycodone Screen NEGATIVE, Urine Methadone Screen NEGATIVE, Urine Fentanyl Screen NEGATIVE, Ur Barbiturates Screen NEGATIVE, Ur Phencyclidine Scrn NEGATIVE, Ur Amphetamines Screen PRESUMPTIVE POSITIVE, U Benzodiazepines Scrn PRESUMPTIVE POSITIVE, Urine Cocaine Screen PRESUMPTIVE POSITIVE, U Cannabinoids Screen PRESUMPTIVE POSITIVE
--- NOTE | 2024-12-13 14:21 | NURSING ---
pt walking around room naked. nursing watching what pt was doing on camera. pt found going through recliner chair and standing by window. when checked on pt, pt was talking on a phone she had hid in room. pt stated she did not want to leave or get kicked out of program. pt willingly handed over phone to nursing staff.
[2024-12-13] MEDS: 0.9% Saline Lock 10 ML Syringe IV (19:58)
[2024-12-14 02:09] VITALS: BP 112/63; PULSE 64; RESP 16; TEMP 36.5; O2SAT 99
[2024-12-14 05:54] VITALS: BP 109/68; PULSE 77; RESP 18; TEMP 36.8; O2SAT 100
--- NOTE | 2024-12-14 08:22 | PN.HOSP_ITS ---
Reason for Visit
--- NOTE | 2024-12-14 08:22 | PCM.PN.HOSP ---
Reason for Visit Chief Complaint: Acute EtOH withdrawal. Subjective Subjective Does not feel well. Left antecubital IV bothersome. Objective Data Objective Data Vital Signs: Vital Signs Temp Pulse Resp BP Pulse Ox O2 Del Method 36.8 C 77 18 109/68 100 Room Air 12/14/24 05:54 12/14/24 05:54 12/14/24 05:54 12/14/24 05:54 12/14/24 05:54 12/14/24 05:54 Oxygen Delivery Method Room Air Weight: 61.5 kg Body Mass Index (BMI) 21.9 Lab / Micro Data 12/13/24 02:30 12/13/24 02:30 Physical Exam Const alert and no apparent distress HEENT head/scalp atraumatic and moist oral mucous membranes Resp normal respiratory effort, no retractions, no use of accessory muscles and clear to auscultation bilaterally Cardio regular rate and regular rhythm Extremity Extremity Narrative: left antecubital IV w/o erythema. Neuro Sensorium / Orientation: awake and alert Assessment & Plan Assessment/Plan (1) Alcohol withdrawal: PLAN: Plan Acute EtOH withdrawal, BZD dependence: feeling uncomfortable. taper course of Phenobarbital, as needed gabapentin, Catapres, Bentyl, Vistaril, IV fluids, IV antiemetics, Tylenol as needed for pain. Mag normal per ED, phos requested. Will consult Case management for assistance for transition to next level of rehabilitation care. History of Opiate Abuse: Notes that since recent admission 03/2024 for opiate abuse/withdrawal she has been clean, encouraged continued clean status. Tobacco use: Encourage tobacco cessation, RT consulted for education, NR ordered. Anxiety and depression: Patient reports using clonazepam 3 times daily; however, during her recent presentation she had also admitted to benzodiazepine abuse and also was treated for withdrawal at that time, as noted above will maintain on phenobarbital, would benefit from discontinuation of the clonazepam, outpatient counseling for her PTSD/anxiety depression, case management/weighty consulted. Chronic asthma: Not on any chronic regimen, PRN albuterol, encourage tobacco cessation. DVT Prophylaxis: Low risk, encourage ambulation. Charges/Coding Visit Charges Inpatient E&M: 28455 Subs Hosp L1
[2024-12-14] MEDS: Thiamine Hydrochloride 100 MG Tablet PO (09:31)
[2024-12-14 09:54] VITALS: BP 110/65; PULSE 70; RESP 18; TEMP 36.7; O2SAT 100; O2SAT 99
--- NOTE | 2024-12-14 11:18 | ADDICTION ---
Attempted to meet with pt to discuss discharge planning. RAMP assessments complete. Pt is unsure on treatment planning, will discuss d/c planning tomorrow.
--- NOTE | 2024-12-14 11:47 | CASEMGMT ---
Social Work SW attempted to speak w/pt to complete SDOH. She is sleeping soundly. As per the rn clinical documentation specialist, pt did not want to speak today, wanted to wait until tomorrow due to how she is feeling. SW will follow up today vs tomorrow as time allows. AJ Yusuf
--- NOTE | 2024-12-14 15:36 | CHAPLAIN ---
Type of Pastoral Visit _x__ Initial Visit ___ Follow-up Visit ___ On-call Visit ___ General Patient Visit ___ Spiritual Assessment ___ Family Conference ___ Bereavement ___ Rapid Response ___ Code Blue ___ Other (describe below) Pastoral Care Referral From _x__ Patient ___ Family ___ Nurse ___ Physician ___ Heating And Ventilating Drafter ___ What Job Titles Mean ___ Other (describe below) Sacrament/Intervention ___ Active listening ___ Anointing ___ Baptist ___ Bereavement ___ Communion ___ Jossy exploration ___ ___ Life review ___ Prayer ___ Reconciliation ___ Sacrament of Sick _x__ Supportive presence ___ Wedding ___ Other (describe below) Pastoral Comments found this patient in her bed but all squeezed into the side and covered in many blankets without evidence of a gown around her top; asked if patient needed help and she did not answer; offered support and pt mumbled 'no'; offered to return to check on her tomorrow and pt sort of nodded her head;
[2024-12-14 17:00] VITALS: BP 118/76; PULSE 87; RESP 18; TEMP 37.2; O2SAT 100
[2024-12-14 22:11] VITALS: BP 92/57; PULSE 82; RESP 16; TEMP 36.4; O2SAT 100
[2024-12-15 05:25] VITALS: BP 112/73; PULSE 79; RESP 16; TEMP 36.7; O2SAT 99
[2024-12-15 07:19] VITALS: O2SAT 96
--- NOTE | 2024-12-15 08:06 | PN.HOSP_ITS ---
Reason for Visit
--- NOTE | 2024-12-15 08:06 | PCM.PN.HOSP ---
Reason for Visit Chief Complaint: Acute EtOH withdrawal. Subjective Subjective Was found vaping in her room. Pt not will to be engaged in conversation with me. Objective Data Objective Data Vital Signs: Vital Signs Temp Pulse Resp BP Pulse Ox O2 Del Method 36.7 C 79 16 112/73 96 Room Air 12/15/24 05:25 12/15/24 05:25 12/15/24 05:25 12/15/24 05:25 12/15/24 07:19 12/15/24 07:19 Oxygen Delivery Method Room Air Weight: 61.5 kg Body Mass Index (BMI) 21.9 Lab / Micro Data 12/13/24 02:30 12/13/24 02:30 Physical Exam Const no apparent distress Constitutional Narrative: lying on her left side. Awake, but does not open her eyes, but nods her head when I ask questions. Assessment & Plan Assessment/Plan (1) Alcohol withdrawal: PLAN: Plan Acute EtOH withdrawal, BZD dependence: feeling uncomfortable. taper course of Phenobarbital, as needed gabapentin, Catapres, Bentyl, Vistaril, IV fluids, IV antiemetics, Tylenol as needed for pain. Mag normal per ED, phos requested. Will consult Case management for assistance for transition to next level of rehabilitation care. Pt provided treatmeent programs and will vet them on her own. History of Opiate Abuse: Notes that since recent admission 03/2024 for opiate abuse/withdrawal she has been clean, encouraged continued clean status. Tobacco use: Encourage tobacco cessation, RT consulted for education, NR ordered. Anxiety and depression: Patient reports using clonazepam 3 times daily; however, during her recent presentation she had also admitted to benzodiazepine abuse and also was treated for withdrawal at that time, as noted above will maintain on phenobarbital, would benefit from discontinuation of the clonazepam, outpatient counseling for her PTSD/anxiety depression, case management/weighty consulted. Chronic asthma: Not on any chronic regimen, PRN albuterol, encourage tobacco cessation. DVT Prophylaxis: Low risk, encourage ambulation. Charges/Coding Visit Charges Inpatient E&M: 93880 Subs Hosp L1
[2024-12-15 10:00] VITALS: BP 102/57; PULSE 72; RESP 16; TEMP 36.3; O2SAT 99
[2024-12-15] MEDS: Thiamine Hydrochloride 100 MG Tablet PO (10:24)
--- NOTE | 2024-12-15 11:04 | CASEMGMT ---
Social Work SW attempted again to see pt to complete SDOH. Pt sleeping and SW not able to wake pt up enough to speak w/SW. SW will try again to meet w/pt as time allows. AJ Yusuf
--- NOTE | 2024-12-15 11:36 | ADDICTION ---
Met with pt to discuss dc planning. Pt reports interest in treatment however did not want placed anywhere. She was willing to take resources. She reports that she wants to contact and vet them herself. Clinician provided resources for inpatient and outpatient tx centers.
[2024-12-15 17:00] VITALS: BP 121/77; PULSE 74; RESP 16; TEMP 36.9; O2SAT 99
[2024-12-15 20:11] VITALS: BP 120/73; PULSE 84; RESP 16; TEMP 36.6; O2SAT 99
[2024-12-15 21:00] VITALS: BP 120/73; PULSE 84; RESP 16; TEMP 36.6; O2SAT 99
[2024-12-16 04:00] VITALS: BP 118/71; PULSE 82; RESP 16; TEMP 36.6; O2SAT 98
[2024-12-16 06:43] VITALS: O2SAT 98
[2024-12-16] MEDS: Nicotine (PBKC) 21 MG Patch TD (08:36)
[2024-12-16] MEDS: Thiamine Hydrochloride 100 MG Tablet PO (08:36)
--- NOTE | 2024-12-16 09:30 | PN.HOSP_ITS ---
Reason for Visit
--- NOTE | 2024-12-16 09:30 | PCM.PN.HOSP ---
Reason for Visit Chief Complaint: Acute EtOH withdrawal. Subjective Subjective Had a rough night but overall feeling well. Ready be discharged and will follow-up with programs for further counseling for alcoholism. Patient did get into the containers last evening to get a shirt. Objective Data Objective Data Vital Signs: Vital Signs Temp Pulse Resp BP Pulse Ox O2 Del Method 36.6 C 82 16 118/71 98 Room Air 12/16/24 04:00 12/16/24 04:00 12/16/24 04:00 12/16/24 04:00 12/16/24 06:43 12/16/24 06:43 Oxygen Delivery Method Room Air Weight: 61.5 kg Body Mass Index (BMI) 21.9 Lab / Micro Data 12/13/24 02:30 12/13/24 02:30 Physical Exam Const alert and no apparent distress Constitutional Narrative: Lying in bed. Nontoxic. Assessment & Plan Assessment/Plan (1) Alcohol withdrawal: PLAN: Plan Acute EtOH withdrawal, BZD dependence: feeling uncomfortable. taper course of Phenobarbital, as needed gabapentin, Catapres, Bentyl, Vistaril, IV fluids, IV antiemetics, Tylenol as needed for pain. Mag normal per ED, phos requested. Will consult Case management for assistance for transition to next level of rehabilitation care. Pt provided treatmeent programs and will vet them on her own. History of Opiate Abuse: Notes that since recent admission 03/2024 for opiate abuse/withdrawal she has been clean, encouraged continued clean status. Tobacco use: Encourage tobacco cessation, RT consulted for education, NR ordered. Anxiety and depression: Patient reports using clonazepam 3 times daily; however, during her recent presentation she had also admitted to benzodiazepine abuse and also was treated for withdrawal at that time, as noted above will maintain on phenobarbital, would benefit from discontinuation of the clonazepam, outpatient counseling for her PTSD/anxiety depression, case management/weighty consulted. Chronic asthma: Not on any chronic regimen, PRN albuterol, encourage tobacco cessation.
--- NOTE | 2024-12-16 09:32 | PCM.DC.SUM ---
Providers Date of Admission: 12/13/24 Primary Care Physician: Nancy Primary Care Phys Reason For Visit: ETOH WITHDRAWAL Diagnosis Discharge Diagnosis (1) Alcohol withdrawal: Status: Acute Code(s): F10.939 - Alcohol use, unspecified with withdrawal, unspecified Plan Acute EtOH withdrawal, BZD dependence: feeling uncomfortable. taper course of Phenobarbital, as needed gabapentin, Catapres, Bentyl, Vistaril, IV fluids, IV antiemetics, Tylenol as needed for pain. Mag normal per ED, phos requested. Will consult Case management for assistance for transition to next level of rehabilitation care. Pt provided treatmeent programs and will vet them on her own. History of Opiate Abuse: Notes that since recent admission 03/2024 for opiate abuse/withdrawal she has been clean, encouraged continued clean status. Tobacco use: Encourage tobacco cessation, RT consulted for education, NR ordered. Anxiety and depression: Patient reports using clonazepam 3 times daily; however, during her recent presentation she had also admitted to benzodiazepine abuse and also was treated for withdrawal at that time, as noted above will maintain on phenobarbital, would benefit from discontinuation of the clonazepam, outpatient counseling for her PTSD/anxiety depression, case management/weighty consulted. Chronic asthma: Not on any chronic regimen, PRN albuterol, encourage tobacco cessation. Medications at Discharge Home Medications clonazepam 1 mg tablet 1 mg PO TID PRN PRN anxiety 03/17/24 gabapentin 100 mg capsule (Neurontin) 100 mg PO TID 14 days #42 caps 03/20/24 Hospital Course Operations None Procedures None Summary of Care Provided Hospital Course: Patient presented for alcohol withdrawal. Course was rather uncomplicated but patient had got into the lock boxes for the vape pen, phone and then a shirt on 3 different occasions. Patient was seen by addiction medicine and provided resources. Patient wanted to bet those on her own as outpatient rather than being directly referred here. Patient will be discharged home in stable condition. Weight / BMI Weight Weight: 61.5 kg Body Mass Index (BMI) 21.9 ABG / Lab / Microbiology Data 12/13/24 02:30 12/13/24 02:30 D/C Instructions DC O2, CPAP, BIPAP Needs Home O2 Discharge instructions: No Meaningful Use Info Meaningful Use Meaningful Use Diagnoses (Choose all that apply): None applicable Discharge Plan Admission Admit Date/Time: 12/13/24 03:49 Primary Reason for Your Visit: Alcohol withdrawal Attending Provider: Anival Smith Primary Care Provider: Care Physician,No Primary Consulting Providers: Nyasia Jerome; Francis Lizama Discharge Orders/Prescriptions Prescriptions: Continued clonazepam 1 mg tablet 1 mg PO TID PRN PRN (Reason: anxiety) gabapentin [Neurontin] 100 mg capsule 100 mg PO TID 14 Days Qty: 42 0RF Referrals / Follow Up: Care Physician,No Primary [Primary Care Provider, Medical] Disposition Disposition (needs filled in before D/C Order can be placed): Home, Self Care Charges/Coding Visit Charges Inpatient E&M: 10939 Disch Hosp
--- NOTE | 2024-12-16 09:51 | PHA.DC_ITS ---
Pharmacy DC Med Reconciliation
--- NOTE | 2024-12-16 09:51 | PHA.DC.MR.R ---
Pharmacy CT Med Reconciliation Pharmacy Service has performed discharge medication reconciliation for this patient. The patient's discharge medication list was reviewed for discrepancies and discrepancies were resolved. Medications at Discharge Home Medications clonazepam 1 mg tablet 1 mg PO TID PRN PRN anxiety 03/17/24 gabapentin 100 mg capsule (Neurontin) 100 mg PO TID 14 days #42 caps 03/20/24
[2024-12-16 10:00] VITALS: BP 117/76; PULSE 84; RESP 16; TEMP 36.9; O2SAT 99
== END 2024-12-16 13:27 | disposition home or self-care (01) | DRG 774 ==
LOC: ED 03:55 → MS3 04:12
PROVIDERS: Admitting Provider Family Medicine; Emergency Provider Emergency Medicine
DX: F10.239 Alcohol dependence with withdrawal, unspecified (principal); F14.19 Cocaine abuse with unspecified cocaine-induced disorder; F13.20 Sedative, hypnotic or anxiolytic dependence, uncomplicated; F32.A Depression, unspecified; J45.909 Unspecified asthma, uncomplicated; F17.210 Nicotine dependence, cigarettes, uncomplicated; F41.9 Anxiety disorder, unspecified; F17.290 Nicotine dependence, other tobacco product, uncomplicated; Y90.0 Blood alcohol level of less than 20 mg/100 ml; F43.10 Post-traumatic stress disorder, unspecified; Z81.8 Family history of other mental and behavioral disorders
CPT/HCPCS: 80053; 80307; 81001; 81025; 82077; 83735; 84100; 85025; 93005; 99284; A4216; J2405